=== PATIENT | female | born 1945 | race Caucasian/White ===

== ENCOUNTER → 2016-09-09 | Outpatient (CLI) | payer OTHER ==
[~2016-09-09] MED LIST: ALPR-411 PO; AMT/25 PO; ATOR-22 PO; CALCIUM 1200 PO; CMD/1 PO; CMD6 PO; LISI-461 PO; MRLP17 PO; MULT-506 PO; NXM/40 PO; TOBRSUS TOP; VENL75CA73 PO; ZOLP10TA3 PO
[2016-09-09 14:56] LABS: BASO % 0.4 %; BASO ABS # 0.02 K/uL (0-0.2); COMPLETE YES; EOS % 6.8 %; HEMATOCRIT 37.5 % (37-47); IG% 0.2 %; LYMPH % 23.1 %; LYMPH ABS # 1.22 K/uL (1.2-3.4); MEAN CELL VOLUME 88.4 fL (80-100); MEAN CORPUSCULAR HEMOGLOBIN 28.8 pg (25-34); MEAN CORPUSCULAR HGB CONC 32.5 g/dl (32-36); MEAN PLATELET VOLUME 10.2 fL (7.4-10.4); MONO % 9.1 %; NEUT % 60.4 %; PLATELET COUNT 290 K/uL (130-400); RED BLOOD COUNT 4.24 M/uL (4.2-5.4); WHITE BLOOD COUNT 5.29 K/uL (4.8-10.8)
[2016-09-09 15:09] LABS: ALT/SGPT 25 U/L (12-78); AST/SGOT 22 U/L (15-37); BLOOD UREA NITROGEN 17 mg/dl (7-18); BUN/CREATININE RATIO 26.2 (10-20); CALCIUM 8.6 mg/dl (8.5-10.1); CARBON DIOXIDE 30 mmol/L (21-32); CHLORIDE 106 mmol/L (98-107); CREATININE 0.65 mg/dl (0.60-1.20); GLUCOSE 106 mg/dl (70-99); POTASSIUM 4.2 mmol/L (3.5-5.1); SODIUM 144 mmol/L (136-145)
[2016-09-09 15:16] LABS: ALKALINE PHOSPHATASE 93 U/L (45-117); CHOLESTEROL 158 mg/dl (0-200); CHOLESTEROL/HDL RATIO 2.6; HDL CHOLESTEROL 61 mg/dl; LDL CHOLESTEROL CALCULATED 69 mg/dl; TRIGLYCERIDES 140 mg/dl (0-150); VERY LOW DENSITY LIPOPROT CALC 28 mg/dl
== END | disposition home or self-care (01) ==
LOC: C.LABSPEC 09:43
PROVIDERS: ATTEND Family Medicine
DX: E03.9 Hypothyroidism, unspecified (principal); I48.2 Chronic atrial fibrillation; I10 Essential (primary) hypertension

== ENCOUNTER → 2017-03-12 | Outpatient (CLI) | payer OTHER ==
[2017-03-12 14:09] LABS: BASO % 0.4 %; BASO ABS # 0.03 K/uL (0-0.2); COMPLETE YES; EOS % 3.5 %; HEMATOCRIT 42.4 % (37-47); IG% 0.1 %; LYMPH % 18.9 %; LYMPH ABS # 1.31 K/uL (1.2-3.4); MEAN CELL VOLUME 91.6 fL (80-100); MEAN CORPUSCULAR HEMOGLOBIN 29.8 pg (25-34); MEAN CORPUSCULAR HGB CONC 32.5 g/dl (32-36); MEAN PLATELET VOLUME 10.3 fL (7.4-10.4); MONO % 8.4 %; NEUT % 68.7 %; PLATELET COUNT 289 K/uL (130-400); RED BLOOD COUNT 4.63 M/uL (4.2-5.4); WHITE BLOOD COUNT 6.94 K/uL (4.8-10.8)
[2017-03-12 14:36] LABS: ALT/SGPT 18 U/L (12-78); BLOOD UREA NITROGEN 18 mg/dl (7-18); BUN/CREATININE RATIO 30.5 (10-20); CALCIUM 9.5 mg/dl (8.5-10.1); CARBON DIOXIDE 31 mmol/L (21-32); CHLORIDE 106 mmol/L (98-107); CHOLESTEROL 176 mg/dl (0-200); CREATININE 0.59 mg/dl (0.60-1.20); GLUCOSE 104 mg/dl (70-99); POTASSIUM 4.4 mmol/L (3.5-5.1); SODIUM 141 mmol/L (136-145)
[2017-03-12 14:45] LABS: ALB/GLOB RATIO 1.1 (0.9-2); ALKALINE PHOSPHATASE 85 U/L (45-117); AST/SGOT 23 U/L (15-37); CHOLESTEROL/HDL RATIO 2.5; HDL CHOLESTEROL 70 mg/dl; LDL CHOLESTEROL CALCULATED 80 mg/dl; TRIGLYCERIDES 129 mg/dl (0-150); VERY LOW DENSITY LIPOPROT CALC 26 mg/dl
== END | disposition home or self-care (01) ==
LOC: C.LABSPEC 13:32
PROVIDERS: ATTEND Family Medicine
DX: I10 Essential (primary) hypertension (principal); E03.9 Hypothyroidism, unspecified

== ENCOUNTER → 2017-09-08 | Outpatient (CLI) | payer OTHER ==
[~2017-09-08] MED LIST changes: -CMD/1 PO; +WARF-298 PO
[2017-09-08 12:50] LABS: BASO % 0.6 %; BASO ABS # 0.04 K/uL (0-0.2); EOS % 7.2 %; EOS ABS # 0.52 K/uL (0-0.5); HEMATOCRIT 41.2 % (37-47); HEMOGLOBIN 13.6 g/dL (12.0-16.0); IG# 0.02 K/uL (0.00-0.02); LYMPH % 19.2 %; LYMPH ABS # 1.39 K/uL (1.2-3.4); MEAN CORPUSCULAR HEMOGLOBIN 30.7 pg (25-34); MEAN PLATELET VOLUME 10.2 fL (7.4-10.4); MONO % 8.4 %; MONO ABS # 0.61 K/uL (0.11-0.59); NEUT % 64.3 %; NEUT ABS # 4.66 K/uL (1.4-6.5); PLATELET COUNT 270 K/uL (130-400); RED CELL DISTRIBUTION WIDTH CV 14.8 % (11.5-14.5); RED CELL DISTRIBUTION WIDTH SD 50.7 fL (36.4-46.3); WHITE BLOOD COUNT 7.24 K/uL (4.8-10.8)
[2017-09-08 14:50] LABS: ALBUMIN 3.4 gm/dl (3.4-5.0); ALKALINE PHOSPHATASE 78 U/L (45-117); ALT/SGPT 18 U/L (12-78); AST/SGOT 17 U/L (15-37); BLOOD UREA NITROGEN 21 mg/dl (7-18); CARBON DIOXIDE 32 mmol/L (21-32); CREATININE 0.73 mg/dl (0.60-1.20); GLUCOSE 104 mg/dl (70-99); POTASSIUM 4.6 mmol/L (3.5-5.1); SODIUM 139 mmol/L (136-145)
[2017-09-08 14:55] LABS: CHOLESTEROL 158 mg/dl (0-200); LDL CHOLESTEROL CALCULATED 65 mg/dl
== END | disposition home or self-care (01) ==
LOC: C.LABSPEC 12:19
PROVIDERS: ATTEND Family Medicine
DX: I10 Essential (primary) hypertension (principal); I48.2 Chronic atrial fibrillation; E03.9 Hypothyroidism, unspecified

== ENCOUNTER → 2017-10-06 | Outpatient (CLI) | payer OTHER ==
[2017-10-06 19:03] LABS: INFLUENZA B ANTIGEN Neg for Influ B (NEG)
== END | disposition home or self-care (01) ==
LOC: C.LABSPEC 17:47
PROVIDERS: ATTEND Family Medicine
DX: R05 Cough (principal)

== ENCOUNTER 2020-03-20 04:56 | Observation (INO) ==
--- NOTE | 2020-02-25 13:29 | PAT Medication Instructions ---
Medication Instructions Date of Service February 25, 2020 Home Medications atorvastatin 20 mg PO QAM bupropion HCl [Wellbutrin SR] 100 mg PO QAM calcium carbonate [Calcium 600] 600 mg PO QAM esomeprazole magnesium [Nexium] 40 mg PO QAM latanoprost [Xalatan] 1 drp OPHTHALMIC (EYE) PM lisinopril 10 mg PO QAM metoprolol succinate [Toprol XL] 50 mg PO QAM multivitamin 1 tab PO QAM polyethylene glycol 3350 [Miralax] 17 g PO HS venlafaxine 75 mg PO QAM warfarin 4.5 mg PO 5XWK warfarin 6 mg PO 2XWK zolpidem 10 mg PO HS ASK your prescriber and surgeon warfarin 4.5 mg PO 5XWK warfarin 6 mg PO 2XWK DO NOT take the morning of surgery calcium carbonate [Calcium 600] 600 mg PO QAM lisinopril 10 mg PO QAM multivitamin 1 tab PO QAM Take morning of surgery With a small sip of water, OTHERWISE NOTHING TO EAT OR DRINK AFTER MIDNIGHT: atorvastatin 20 mg PO QAM bupropion HCl [Wellbutrin SR] 100 mg PO QAM esomeprazole magnesium [Nexium] 40 mg PO QAM metoprolol succinate [Toprol XL] 50 mg PO QAM venlafaxine 75 mg PO QAM Take evening before surgery latanoprost [Xalatan] 1 drp OPHTHALMIC (EYE) PM polyethylene glycol 3350 [Miralax] 17 g PO HS zolpidem 10 mg PO HS Other Notes If you have any questions please call us at [phone] or [phone] or [phone] or [phone]
--- NOTE | 2020-02-28 11:33 | Anesthesiology Consultation ---
Date of Service February 28, 2020 Assessment & Plan (1) Encounter for pre-operative examination: COVID Status: As of 02/27 assessment, patient denies travel to endemic area, known exposure/sick contacts, or symptoms of COVID19. Patient instructed that they and their household members must follow strict social distancing guidelines, wear a mask in public and avoid travel for 14 days prior to surgery. Preoperative COVID19 testing to be completed prior to surgery per surgeon's arra ngements. Patient made aware to self-isolate as much as possible between COVID testing and surgery. Cardiology Clearance 02/29/20 = "Cleared from cardiac standpoint." PCP Clearance 03/07/20 = "Seen in the office March 06 2020, cleared for total hip replacement given cleared by cardiology." Chart Review Chart Review: Acceptable Risk for Surgery and Patient seen in Pre Admission Testing Teaching & Discussion Instructed NPO after midnight before surgery, except medications with 15 cc of water. Medication instructions provided according to the PAT guidelines. History Surgery Operation Date: 03/20/20 10:40 Proposed Procedures p Left Anterior Total Hip Arthroplasty - Danny Villa DO Height/Weight Height: 5 ft 4 in Weight: 70.2 kg Allergies Allergy/AdvReac Type Severity Reaction Status Date / Time levofloxacin Allergy Unknown ARMS GET Verified 02/24/20 10:47 HEAVY FEELING AND HURT Sulfa (Sulfonamide Allergy Unknown ITCHINESS,H Verified 02/24/20 10:47 Antibiotics) TRUPTI MACE Medications Home Medications Medication Instructions Recorded Confirmed Last Taken atorvastatin 20 mg PO QAM 09/06/19 02/24/20 Unknown bupropion HCl [Wellbutrin SR] 100 mg PO QAM 09/06/19 02/24/20 Unknown calcium carbonate [Calcium 600] 600 mg PO QAM 09/06/19 02/24/20 Unknown esomeprazole magnesium [Nexium] 40 mg PO QAM 09/06/19 02/24/20 Unknown latanoprost [Xalatan] 1 drp OPHTHALMIC (EYE) PM 09/06/19 02/24/20 Unknown lisinopril 10 mg PO QAM 09/06/19 02/24/20 Unknown metoprolol succinate [Toprol XL] 50 mg PO QAM 09/06/19 02/24/20 Unknown multivitamin 1 tab PO QAM 09/06/19 02/24/20 Unknown polyethylene glycol 3350 [Miralax] 17 g PO HS 09/06/19 02/24/20 Unknown venlafaxine 75 mg PO QAM 09/06/19 02/24/20 Unknown warfarin 4.5 mg PO 5XWK 09/06/19 02/24/20 Unknown warfarin 6 mg PO 2XWK 09/06/19 02/24/20 Unknown zolpidem 10 mg PO HS 09/06/19 02/24/20 Unknown Past Medical History Medical History Anxiety Atrial fibrillation Chronic back pain COPD (chronic obstructive pulmonary disease) Mild emphysema, no inhalers. Depression Environmental allergies GERD (gastroesophageal reflux disease) Glaucoma H/O supraventricular tachycardia s/p RFA History of diverticulitis s/p bowel resection-1998 Hyperlipidemia Hypertension On anticoagulant therapy Coumadin daily for afib Osteoarthritis Pollen allergies Exercise / Class Metabolic Activity II 4-5 Yardwork/Stairs/Walk up hill (Does stairs at home daily, no chest pain, mild MANRIQUE) Past Family History Family History Uncle Family history of diabetes mellitus Father Family hx of colon cancer Past Surgical History Surgical History History of arthroscopic knee surgery History of bowel resection History of cardiac cath 11/2019 DR MENDEZ OFFICE-NO STENTS History of cardiac radiofrequency ablation History of carpal tunnel surgery of right wrist History of section X 2 History of esophagogastroduodenoscopy (EGD) History of right hip replacement Hx of bilateral cataract extraction Hx of colonoscopy Hx of dilation and curettage Hx of exploratory laparotomy Past Anesthesia History No Hx of Anesthesia Complications and No Family Hx of Anesthesia Complications History of PONV No Hx of PONV and No Hx of Motion Sickness Social History Smoking Status: Former smoker tobacco type: cigarettes Do You Dip or Chew Tobacco: No Smoking End Date: 09/12/19 Hx Alcohol Use: Yes Alcohol type: beer, wine and hard liquor alcohol intake frequency: a few times a week Hx Substance Use: No Review of Systems Pt denies any recent chest pain, shortness of breath, palpitations, cough, fever, URI, or uncontrolled acid reflux. Physical Exam Vital Signs BP: 157/77 P: 57bpm SPO2: 99% RA T: 98.3 F R: 16 ENMT Mouth: + chipped teeth (small chips in front uppers); no dental restorations and no loose teeth Thyromental Distance: > or= 3.5 Finger Breadths Mallampati Class: I Neck normal visual inspection; neck extension not limited Respiratory normal respiratory effort Auscultation: lungs clear to auscultation bilaterally Cardiovascular Rate/Rhythm: regular rate and regular rhythm Heart Sounds: no murmur Extremities: no edema Testing Laboratory Results 02/28/20 11:25 02/28/20 11:25 PT 18.2 Seconds (9.0-12.0) H 02/28/20 11:25 INR 1.8 (0.9-1.1) H 02/28/20 11:25 APTT 34.1 Seconds (21.0-31.0) H 02/28/20 11:25 Hemoglobin A1c 6.1 % (4.5-5.6) H 02/28/20 11:25 Urine Color Yellow 02/28/20 11:25 Urine Appearance Clear (Clear) 02/28/20 11:25 Urine pH 5.0 (4.5-7.5) 02/28/20 11:25 Ur Specific [place] 1.018 (1.000-1.030) 02/28/20 11:25 Urine Protein Negative (Negative) 02/28/20 11:25 Urine Glucose (UA) Negative (Negative) 02/28/20 11:25 Urine Ketones Negative (Negative) 02/28/20 11:25 Urine Nitrite Negative (Negative) 02/28/20 11:25 Ur Leukocyte Esterase Trace (Negative) H 02/28/20 11:25 Urine WBC (Auto) 1-5 /hpf (0-5) 02/28/20 11:25 Urine RBC (Auto) 0-4 /hpf (0-4) 02/28/20 11:25 U Hyaline Cast (Auto) 1-5 /lpf (0-5) 02/28/20 11:25 U Epithel Cells (Auto) 5-10 /lpf (0-5) H 02/28/20 11:25 Urine Bacteria (Auto) Negative (Negative) 02/28/20 11:25 Blood Type A Negative 02/28/20 11:25 Antibody Screen NEGATIVE 02/28/20 11:25 Electrocardiogram Date: 02/29/20 Findings: + NSR @ (61bpm) RSR in V1, nondiagnostic. Chest X-Ray Date: 09/28/19 Findings: + NAD Cardiac Catheterization Date: 11/16/19 Angiographically normal coronary arteries, normal left ventriculogram. Other Testing Testing noted as below in cardiology office note, requested full reports but not received. Nuclear Stress Test 10/2019 EF 74% "WNL" (although LHC was done apparently for abnormal stress test) Echocardiogram 09/2019 LVEF 40-45% Aor 3.0cm DD grade I Moderate AR MAC
[2020-02-28 12:27] LABS: Basophils # (auto) 0.03 K/uL (0-0.2); Basophils % (auto) 0.5 %; Eosinophils # (auto) 0.36 K/uL (0-0.5); Eosinophils % (auto) 6.1 %; Hematocrit (blood only) 39.7 % (37-47); Hemoglobin 13.1 g/dL (12.0-16.0); Immature Granulocytes # (auto) 0.01 K/uL (0.00-0.02); Immature Granulocytes % (auto) 0.2 %; Lymphocytes # (auto) 1.24 K/uL (1.2-3.4); Mean Corpuscular Hemoglobin 30.5 pg (25-34); Mean Corpuscular Volume 92.3 fL (80-100); Mean Platelet Volume 10.2 fL (7.4-10.4); Monocytes # (auto) 0.35 K/uL (0.11-0.59); Monocytes % (auto) 5.9 %; Neutrophils # (auto) 3.91 K/uL (1.4-6.5); Neutrophils % (auto) 66.3 %; Platelet Count 247 K/uL (130-400); RDW Coefficient of Variation 14.3 % (11.5-14.5)
[2020-02-28 12:32] LABS: Appearance Urine Clear (Clear); Bacteria Urine Automated Negative (Negative); Bilirubin Urine Negative (Negative); Blood Urine Trace (Negative); Color Urine Yellow; Glucose Urine UA Negative (Negative); Ketones Urine Negative (Negative); Leukocyte Esterase Urine Trace (Negative); Nitrite Urine Negative (Negative); Protein Urine Negative (Negative); RBC Urine Automated 0-4 /hpf (0-4); Specific Gravity Urine 1.018 (1.000-1.030); Urobilinogen Urine Negative (Negative)
[2020-02-28 12:37] LABS: Estimated Average Glucose 128 mg/dl; Hemoglobin A1C 6.1 % (4.5-5.6)
[2020-02-28 12:44] LABS: INR 1.8 (0.9-1.1); Partial Thromboplastin Ratio 1.2; Partial Thromboplastin Time 34.1 Seconds (21.0-31.0); Prothrombin Time 18.2 Seconds (9.0-12.0)
[2020-02-28 12:49] LABS: Albumin Level 3.3 gm/dl (3.4-5.0); BUN Creatinine Ratio 30.2 (10-20); Calcium 9.6 mg/dl (8.5-10.1); Creatinine Clr Calc Pharmacy 67.9 ml/min; Est GFR (Non-African American) 83.7; Potassium 4.6 mmol/L (3.5-5.1)
--- NOTE | 2020-03-18 11:40 | History & Physical Report ---
Date of Service March 20, 2020 Assessment & Plan (1) Degenerative joint disease of left hip: I have indicated the patient for left anterior total hip replacement. The risks, benefits and complications of surgery were explained to the patient which include but not limited to infection, acute blood loss, DVT/PE, injury to nerves, vessels, bone, soft tissue, arthrofibrosis, chronic pain, failure of the prosthesis, hip dislocation, leg length discrepancy, need for additional surgery, cardiac and pulmonary events and . The patient wished to proceed with surgery and informed consent was obtained at this time. We will plan for restarting patient's home medication Warfarin, bridge with lovenox post- operatively for DVT prophylaxis. Upon discharge the patient will be discharged home with home health services. Appropriate clearances by PCP and cardiology were obtained. History of Present Illness Primary Care Provider: Simba Wallace The patient is a 74 year old female who presents with complaints of severe left hip pain and DJD. The patient has failed outpatient conservative treatments to this point which included activity modification, home exercise, walking program. Patient unable to take NSAIDs secondary to being on Warfarin. Declined corticosteroid injection. The patient's pain and limited function have progressed to the point where they severely hinder their activities of daily living and they no longer tolerate exercise programs. They are requesting to pro ceed with total hip replacement surgery. Allergies Allergy/AdvReac Type Severity Reaction Status Date / Time levofloxacin Allergy Unknown ARMS GET Verified 03/20/20 05:26 HEAVY FEELING AND HURT Sulfa (Sulfonamide Allergy Unknown ITCHINESS,H Verified 03/20/20 05:26 Antibiotics) TRUPTI MACE Home Medications Home Medications Medication Instructions Recorded Confirmed Type atorvastatin 20 mg PO QAM 09/06/19 02/24/20 History bupropion HCl [Wellbutrin SR] 100 mg PO QAM 09/06/19 03/20/20 History calcium carbonate [Calcium 600] 600 mg PO QAM 09/06/19 03/20/20 History esomeprazole magnesium [Nexium] 40 mg PO QAM 09/06/19 02/24/20 History latanoprost [Xalatan] 1 drp OPHTHALMIC (EYE) PM 09/06/19 03/20/20 History lisinopril 10 mg PO QAM 09/06/19 03/20/20 History metoprolol succinate [Toprol XL] 50 mg PO QAM 09/06/19 02/24/20 History multivitamin 1 tab PO QAM 09/06/19 03/20/20 History polyethylene glycol 3350 [Miralax] 17 g PO HS 09/06/19 03/20/20 History venlafaxine 75 mg PO QAM 09/06/19 02/24/20 History warfarin 4.5 mg PO 5XWK 09/06/19 03/20/20 History warfarin 6 mg PO 2XWK 09/06/19 03/20/20 History zolpidem 10 mg PO HS 09/06/19 03/20/20 History Past Med/Surg History Medical History Anxiety Atrial fibrillation Chronic back pain COPD (chronic obstructive pulmonary disease) Mild emphysema, no inhalers. Depression Environmental allergies GERD (gastroesophageal reflux disease) Glaucoma H/O supraventricular tachycardia s/p RFA History of diverticulitis s/p bowel resection-1998 Hyperlipidemia Hypertension On anticoagulant therapy Coumadin daily for afib Osteoarthritis Pollen allergies Surgical History History of arthroscopic knee surgery History of bowel resection History of cardiac cath 11/2019 DR MENDEZ OFFICE-NO STENTS History of cardiac radiofrequency ablation History of carpal tunnel surgery of right wrist History of section X 2 History of esophagogastroduodenoscopy (EGD) History of right hip replacement Hx of bilateral cataract extraction Hx of colonoscopy Hx of dilation and curettage Hx of exploratory laparotomy Family History Uncle Family history of diabetes mellitus Father Family hx of colon cancer Social History Smoking Status: Former smoker Smoking End Date: 09/12/19; Second Hand Exposure: Yes (PARENTS SMOKED); Do You Dip or Chew Tobacco: No; Hx Alcohol Use: Yes Alcohol type: beer, wine and hard liquor Hx Substance Use: No Preferred Language: Occitan Communication Ability: Effective Jacker Feeder Required: No Beliefs That Will Affect Care: None Current Living Situation: Spouse Other Information That Helps Us Care for You: No Feels Safe at Home: Yes Safety Concerns: Feels Safe At This Time Review of Systems Review of Systems: All systems reviewed & are unremarkable except as noted in HPI & below Constitutional: as per Subjective / HPI Physical Exam Physical Exam: LLE NVSI +EHL/FHL/TA/GS SILT grossly, +2 DP pulse, compartments soft NT, limited painful ROM of the hip, antalgic gait. Constitutional: WD/WN, vitals as above Eyes: PERRL, conjunctivae normal, anicteric sclerae ENMT: external ear and nose normal, oropharynx normal Neck: trachea midline, no thyromegaly Respiratory: normal respiratory effort, lungs clear to auscultation Cardiovascular: RRR, no murmur, no edema Gastrointestinal (Abdomen): normal bowel sounds, soft, nontender, no hepatosplenomegaly Musculoskeletal: no cyanosis or clubbing, extremities motor strength 5/5 Skin: no rashes, warm and dry Neurologic: patellar DTR's 2+ bilat, sensation intact Psychiatric: A+Ox3, euthymic affect Lymphatic: no cervical or axillary lymphadenopathy Results & Data Results & Data ([facility]) Diagnostic Findings Multiple views of the hip demonstrates severe DJD with complete loss of the inferomedial joint space. +osteophytes, +sclerosis, +subchondral cysts. Pre Admission Testing Addendum Laboratory Results 02/28/20 11:25 02/28/20 11:25 PT 18.2 Seconds (9.0-12.0) H 02/28/20 11:25 INR 1.8 (0.9-1.1) H 02/28/20 11:25 APTT 34.1 Seconds (21.0-31.0) H 02/28/20 11:25 Hemoglobin A1c 6.1 % (4.5-5.6) H 02/28/20 11:25 Urine Color Yellow 02/28/20 11:25 Urine Appearance Clear (Clear) 02/28/20 11:25 Urine pH 5.0 (4.5-7.5) 02/28/20 11:25 Ur Specific [place] 1.018 (1.000-1.030) 02/28/20 11:25 Urine Protein Negative (Negative) 02/28/20 11:25 Urine Glucose (UA) Negative (Negative) 02/28/20 11:25 Urine Ketones Negative (Negative) 02/28/20 11:25 Urine Nitrite Negative (Negative) 08/24/20 11:25 Ur Leukocyte Esterase Trace (Negative) H 02/28/20 11:25 Urine WBC (Auto) 1-5 /hpf (0-5) 02/28/20 11:25 Urine RBC (Auto) 0-4 /hpf (0-4) 02/28/20 11:25 U Hyaline Cast (Auto) 1-5 /lpf (0-5) 02/28/20 11:25 U Epithel Cells (Auto) 5-10 /lpf (0-5) H 02/28/20 11:25 Urine Bacteria (Auto) Negative (Negative) 02/28/20 11:25 Blood Type A Negative 02/28/20 11:25 Antibody Screen NEGATIVE 02/28/20 11:25
[2020-03-20 05:48] LABS: Partial Thromboplastin Ratio 0.9; Partial Thromboplastin Time 25.9 Seconds (21.0-31.0); Prothrombin Time 10.9 Seconds (9.0-12.0)
[2020-03-20] MEDS ORDERED: LR 500ML BOLUS, THEN 15ML/HR IV SCH (06:00)
[2020-03-20] MEDS ORDERED: METOCLOPRAMIDE HCL 10 MG TABLET PO SCH (06:00)
[2020-03-20] MEDS ORDERED: ACETAMINOPHEN 500 MG TAB PO SCH (06:00)
[2020-03-20] MEDS ORDERED: GABAPENTIN 300 MG CAP PO SCH (06:00)
[2020-03-20] MEDS ORDERED: FAMOTIDINE 20 MG TAB PO SCH (06:00)
[2020-03-20] MEDS ORDERED: CEFAZOLIN 2000MG 2,000 MG/15 ML SYR IV SCH (06:00)
[2020-03-20] MEDS ORDERED: dexAMETHasone 4 MG TAB PO SCH (06:00)
[2020-03-20] MEDS ORDERED: fentaNYL citrate 100 MCG/2 ML VIAL ONE (06:23)
[2020-03-20] MEDS ORDERED: MIDAZOLAM HCL 1 MG/ML 2ML VIAL ONE (06:23)
[2020-03-20] MEDS ORDERED: BUPIVACAINE 0.5 % 5 MG/1 ML PF 10ML VIAL ONE (06:27)
[2020-03-20] MEDS ORDERED: BACITRACIN INJ 50,000 UNIT VIAL ONE (06:33)
[2020-03-20] MEDS ORDERED: ePHEDrine sulfate 50 MG/ML AMP IV PRN (06:37)
[2020-03-20] MEDS ORDERED: fentaNYL citrate 100 MCG/2 ML VIAL IV PRN (06:37)
[2020-03-20] MEDS ORDERED: ATROPINE SULFATE 0.1 MG/ML 10ML SYR IV PRN (06:37)
[2020-03-20] MEDS ORDERED: ONDANSETRON INJ 2 MG/ML 2 ML VIAL IV PRN ×2 (06:37→10:25)
--- NOTE | 2020-03-20 06:41 | History & Physical Bridge Note ---
Date of Service March 20, 2020 History & Physical Bridge Note I have examined the patient, reviewed the History & Physical and in the interval since the performance of the History & Physical I have noted the following changes of clinical significance: no changes noted
[2020-03-20] MEDS ORDERED: PROPOFOL IV EMULSION 10 MG/ML 20 ML VIAL IV ONE (07:40)
[2020-03-20] MEDS: ROPIVACAINE 0.5% HCL/PF 150 MG, BUPIVACAINE 0.5% MPF 30 ML, EPINEPHrine 30MG/30ML (OR U... INSTIL SCH (08:00)
--- NOTE | 2020-03-20 08:48 | Post Operative Brief Note ---
Immediate Post Op Note v1 Date of Surgery March 20, 2020 Pre & Post Diagnosis Operation Date: 03/20/20 07:00 Pre-Op Diagnosis: Unilateral Osteoarthritis, Left Hip Post-Op Diagnosis: Unilateral Osteoarthritis, Left Hip I identified the patient and participated in the time-out.: Yes Procedure Operation Date: 03/20/20 07:00 Actual Procedures p Left Anterior Total Hip Arthroplasty(Left) - Danny Villa DO Surgeon Danny Villa DO Spray Drier Maxx Tompkins Estimated Blood Loss 175 Findings Consistent with Post-Op Diagnosis Fluids 800 cc LR Specimens femoral head Anesthesia Type Spinal MAC Complications none Disposition Disposition: Recovery Room Overlapping Procedure I was present for: the critical portions of procedure. I was immediately available: during the entire case. Back up surgeon: was not required during procedure.
--- NOTE | 2020-03-20 08:50 | Operative Report ---
Post Operative Report Pre & Post Diagnosis Operation Date: 03/20/20 07:00 Pre-Op Diagnosis: Unilateral Osteoarthritis, Left Hip Post-Op Diagnosis: Unilateral Osteoarthritis, Left Hip I identified the patient and participated in the time-out.: Yes Procedure Operation Date: 03/20/20 07:00 Actual Procedures p Left Anterior Total Hip Arthroplasty(Left) - Danny Villa DO Surgeon Danny Villa DO Appliance Technician Maxx Tompkins Estimated Blood Loss 175 Findings Consistent with Post-Op Diagnosis Fluids 800 cc LR Specimens femoral head Anesthesia Type Spinal MAC Complications none Disposition Disposition: Recovery Room Indications The patient is a 74-year-old female who presents with severe progressive left hip DJD who has failed outpatient conservative treatments. I indicated the patient for a total hip replacement and the risks and benefits were explained in detail which included but not limited to infection, bleeding, blood clot, damage to surrounding bone, nerves, vessels, soft tissue, hip dislocation, failure of the prosthesis, leg length discrepancy, need for additional surgery and . The patient agreed to proceed with replacement of the hip and informed consent was obtained. Appropriate clearances were obtained. Description of Procedure COMPONENTS USED: [employer] hip system: Acetabulum size 50, femur size 6 high offset, femoral head 32-3, liner 5032, acetabular screw 25 mm x 1. DESCRIPTION OF PROCEDURE: Following satisfactory spinal anesthesia, the patient was placed supine on the OR table. The right leg was placed in the well leg nevarez and the left leg in the traction device. The left leg was prepared with ChloraPrep and draped sterilely. A surgical timeout was performed, patient identified and site efe verified. Appropriate antibiotics were given. A standard anterior approach in the interval between the sartorius and tensor muscles was performed. Dissection was carried down through subcutaneous tissues. Electrocautery was utilized for hemostasis. Circumflex femoral vessels were identified, tied and ligated. The anterior capsular fat pad was removed and the capsulotomy was performed revealing the arthritic femoral neck and head. A femoral neck cut was made with reciprocating saw and the bone fragments removed. The acetabular self-retraining retractor was placed. Acetabular reaming was completed under fluoroscopic guidance, a 50 shell was impacted into an anatomic position and secured with a dome screw. Local anesthetic was placed and following irrigation, the polyethylene liner was placed. The femur was placed into position of external rotation, extension and adduction. Femoral canal was prepared up to the size 6 high offset. Trial reduction with a 32-3 neck length head showed good soft tissue tension, leg lengths restored, and good fit and fill of the proximal canal using fluoroscopic landmarks. The hip was dislocated. The trial component was removed. The final implant was placed. The hip was irrigated with sterile saline solution and reduced. A Betadine soak was performed. After 3 minutes, the hip was once more irrigated with copious sterile saline solution with bacitracin. Frida-incisional soft tissue was injected utilizing [place] [employer] which includes a combination of Ropivicaine 0.5% 150mg, Bupivicaine 0.5%/Epinephrine 1:200,000 30ml, Toradol 30mg, Dexamethasone 4mg, Ketamine 10mg, Clonidine 100mcg and NSS 30ml solution. The capsule was then closed with 1-0 Vicryl interrupted figure of eight sutures. The fascia was closed with a running suture of #1 Vicryl, the subcutaneous tissues with 2-0 Vicryl and the skin was closed with bernardino. A sterile dry dressing was applied which included Esme incisional VAC. The patient tolerated the procedure well and was transported to PACU in stable condition. Due to the complex nature of the procedure, the entire surgery was performed with the operational assistance of Maxx Tompkins PA-C. The esl instructional assistant, under direct supervision, was involved in the actual performance of all aspects of the surgical procedure including patient positioning, hemostasis, tissue retraction, instrument management and wound closure. I attest to the content of the Intraoperative Record and any orders documented therein. Any exceptions are noted below.
--- NOTE | 2020-03-20 08:57 | Fluoroscopy Report ---
FL hip LT 1V HISTORY: 74 years-old Female LT ANTERIOR TOTAL HIP left hip total joint arthroplasty COMPARISON: CT of the right hip 01/27/2012 TECHNIQUE: 2 spot fluoroscopic images of the left hip were obtained utilizing 49.3 seconds fluoroscop y time FINDINGS: Left hip total joint arthroplasty demonstrates satisfactory alignment. No acute fracture or expected retained foreign body. Expected postsurgical soft tissue swelling is noted throughout the left hip. R ight hip total arthroplasty is partially imaged. IMPRESSION: Fluoroscopic assistance as above. Please see operative report for further details. ACT 112: Negative or not required by law. The above report was generated using voice recognition software. It may contain grammatical, syntax o r spelling errors. Electronically signed by: Onofre Cuellar M.D. 03/20/2020 8:55 AM
--- NOTE | 2020-03-20 09:33 | XRay Report ---
XR hip 1V LT w pelvis HISTORY: 74 years-old Female IN PACU - A/P PELVIS and LATERAL HIP left hip total joint arthroplasty COMPARISON: Fluoroscopic images of the left hip 03/20/2020 TECHNIQUE: AP view of the pelvis with crosstable lateral view of the left hip FINDINGS: Left hip total joint arthroplasty demonstrates satisfactory alignment. Expected postsurgical soft tis sylvester swelling and deep tissue air with surgical drainage catheter. Overlying skin bernardino are noted wi thout unexpected radiopaque foreign body. Right hip total arthroplasty is also noted. IMPRESSION: Left hip total joint arthroplasty with expected postoperative changes. ACT 112: Negative or not required by law. The above report was generated using voice recognition software. It may contain grammatical, syntax o r spelling errors. Electronically signed by: Onofre Cuellar M.D. 03/20/2020 9:31 AM
--- NOTE | 2020-03-20 10:15 | Anesthesiology Progress Note ---
Date of Service March 20, 2020 Anesthesia Post Procedure Vital Signs Vital Signs: Temp Pulse Pulse Resp BP Pulse Ox 03/20/20 10:05 66 18 120/53 L 98 03/20/20 09:55 65 16 131/56 L 98 03/20/20 09:45 66 19 129/55 L 98 03/20/20 09:35 64 15 135/58 L 97 03/20/20 09:25 65 19 129/55 L 96 03/20/20 09:15 66 16 133/60 96 03/20/20 09:09 97.7 F 69 16 135/63 100 03/20/20 05:40 98.4 F 69 18 170/70 H 97 Pain Intensity Left Hip: Pain Intensity: 0 Transfer of Care Handoff Completed per policy Notes Mental Status: alert / awake / arousable and participated in evaluation Patient Amnestic to Procedure: Yes Nausea / Vomiting: adequately controlled Pain: adequately controlled Airway Patency, RR, SpO2: stable & adequate BP & HR: stable & adequate Hydration State: stable & adequate Anesthetic Complications: no major complications apparent and Pt Satisfied with anesthetic care
[2020-03-20] MEDS ORDERED: bisacodyL 10 MG SUPP PR PRN (10:25)
[2020-03-20] MEDS ORDERED: HYDROmorphone INJ 0.5 MG/0.5 ML SYR IV PRN (10:25)
[2020-03-20] MEDS ORDERED: MAGNESIUM HYDROXIDE SUSP 30 ML UDC PO PRN (10:25)
[2020-03-20] MEDS ORDERED: NALOXONE HCL 0.4 MG/1 ML VIAL/CARP IV PRN (10:25)
[2020-03-20] MEDS ORDERED: METOCLOPRAMIDE HCL INJ 5 MG/ML 2 ML VIAL IV PRN (10:25)
[2020-03-20] MEDS ORDERED: ATORVASTATIN 20 MG TAB PO SCH (10:25)
[2020-03-20] MEDS: SODIUM CHLORIDE 0.9% 1000ML 1,000 ML IV SCH ×2 (10:46→19:54)
[2020-03-20] MEDS: MISSING PHYSICIAN SIGNATURE ON ORDER SCH ×3 (11:02→16:21)
[2020-03-20] MEDS: lisinopriL 10 MG TAB PO SCH (11:20)
[2020-03-20] MEDS: MULTIVITAMIN TAB PO SCH (11:20)
[2020-03-20] MEDS: DOCUSATE SODIUM 100 MG CAP PO SCH ×2 (11:20→21:46)
[2020-03-20] MEDS: OXYCODONE HCL IR 5 MG TAB (IMMEDIATE RELEASE) PO PRN ×2 (12:12→17:25)
[2020-03-20] MEDS: ACETAMINOPHEN 500 MG TAB PO SCH ×2 (12:13→21:46)
[2020-03-20] MEDS: CEFAZOLIN 2000MG 2,000 MG/15 ML SYR IV SCH ×2 (15:58→22:33)
[2020-03-20] MEDS ORDERED: WARFARIN SOD 2.5 MG TAB PO SCH (16:00)
[2020-03-20] MEDS ORDERED: WARFARIN SOD 2 MG TAB PO SCH (16:00)
--- NOTE | 2020-03-20 16:05 | Orthopedic Progress Note ---
Date of Service March 20, 2020 Assessment & Plan (1) Degenerative joint disease of left hip: s/p L anterior KEZIA -ancef x 24 -DVT ppx: SCDs, TEDs, Lovenox --> warfarin -WBAT LLE -PT/OT -PO XR demonstrates a well aligned well fixed prosthesis without fracture/dislocation -am labs -DC planning Admission and Anticipated Discharge Date Admission Date: March 20, 2020 Subjective Post Operative Progress Note Patient seen sitting up in bed, comfortable, denies complaints, pain well controlled, no acute issues. Review of Systems Review of Systems: All systems reviewed & are unremarkable except as noted in HPI & below Constitutional: as per Subjective / HPI Physical Exam Physical Exam: LLE NVSI +EHL/FHL/TA/GS SILT grossly, +2 DP pulse, compartments soft NT, dressing cdi. Constitutional: WD/WN, vitals as above Results & Data ([facility]) Vital Signs (Past 12 Hours) Vital Signs Temp Pulse Pulse Pulse Resp BP Pulse Ox 03/20/20 15:35 36.6 C 58 L 18 130/76 94 03/20/20 13:22 69 18 120/54 L 96 03/20/20 12:16 70 16 145/67 H 96 03/20/20 11:22 66 16 127/65 96 03/20/20 10:51 65 16 134/70 100 03/20/20 10:25 36.5 C 66 15 127/68 99 03/20/20 10:15 36.3 C L 68 16 117/52 L 97 03/20/20 10:05 66 18 120/53 L 98 03/20/20 09:55 65 16 131/56 L 98 03/20/20 09:45 66 19 129/55 L 98 03/20/20 09:35 64 15 135/58 L 97 03/20/20 09:25 65 19 129/55 L 96 03/20/20 09:15 66 16 133/60 96 03/20/20 09:09 36.5 C 69 16 135/63 100 03/20/20 05:40 36.9 C 69 18 170/70 H 97
[2020-03-20] MEDS ORDERED: LATANOPROST 0.005% OP SOLN 2.5 ML BTL OP SCH (21:00)
[2020-03-20] MEDS ORDERED: SENNA 8.6 MG TAB PO SCH (21:00)
[2020-03-20] MEDS ORDERED: ZOLPIDEM TARTRATE 10 MG TAB PO SCH (21:00)
[2020-03-21] MEDS: OXYCODONE HCL IR 5 MG TAB (IMMEDIATE RELEASE) PO PRN ×2 (02:35→09:16)
[2020-03-21] MEDS: ROPIVACAINE 0.5% HCL/PF 150 MG, BUPIVACAINE 0.5% MPF 30 ML, EPINEPHrine 30MG/30ML (OR U... INSTIL SCH (05:18)
[2020-03-21] MEDS: ACETAMINOPHEN 500 MG TAB PO SCH ×2 (05:32→13:16)
[2020-03-21 06:07] LABS: Hematocrit (blood only) 30.3 % (37-47); Hemoglobin 9.8 g/dL (12.0-16.0); Lymphocytes # (auto) 0.89 K/uL (1.2-3.4); Lymphocytes % (auto) 13.4 %; Mean Corpuscular Hemoglobin 29.6 pg (25-34); Mean Corpuscular Hgb Conc 32.3 g/dL (32-36); Mean Corpuscular Volume 91.5 fL (80-100); Mean Platelet Volume 9.8 fL (7.4-10.4); Monocytes # (auto) 0.88 K/uL (0.11-0.59); Monocytes % (auto) 13.3 %; Neutrophils # (auto) 4.86 K/uL (1.4-6.5); Neutrophils % (auto) 73.3 %; Platelet Count 224 K/uL (130-400); RDW Coefficient of Variation 14.1 % (11.5-14.5); RDW Standard Deviation 47.2 fL (36.4-46.3); Red Blood Count 3.31 M/uL (4.2-5.4); White Blood Count 6.63 K/uL (4.8-10.8)
[2020-03-21 06:14] LABS: INR 1.1 (0.9-1.1); Prothrombin Time 11.2 Seconds (9.0-12.0)
[2020-03-21 06:36] LABS: BUN Creatinine Ratio 29.8 (10-20); Calcium 8.1 mg/dl (8.5-10.1); Creatinine Clr Calc Pharmacy 84.7 ml/min; Est GFR (African American) 106.7; Est GFR (Non-African American) 92.1; Potassium 3.8 mmol/L (3.5-5.1)
[2020-03-21] MEDS ORDERED: ENOXAPARIN INJ 40 MG/0.4 ML SYR SQ SCH (09:00)
[2020-03-21] MEDS ORDERED: PANTOprazole 40 MG TAB PO SCH (09:00)
[2020-03-21] MEDS ORDERED: ATORVASTATIN 20 MG TAB PO SCH (09:00)
[2020-03-21] MEDS ORDERED: BuPROPion SR 100 MG TABCR PO SCH (09:00)
[2020-03-21] MEDS ORDERED: METOPROLOL SUCC 50MG EXT REL TAB PO SCH (09:00)
[2020-03-21] MEDS ORDERED: VENLAFAXINE HCL XR 75 MG CAPXR PO SCH (09:00)
[2020-03-21] MEDS: lisinopriL 10 MG TAB PO SCH (09:15)
[2020-03-21] MEDS: MULTIVITAMIN TAB PO SCH (09:15)
[2020-03-21] MEDS: DOCUSATE SODIUM 100 MG CAP PO SCH (09:15)
--- NOTE | 2020-03-21 11:12 | Orthopedic Progress Note ---
Date of Service March 21, 2020 Assessment & Plan (1) Degenerative joint disease of left hip: s/p L anterior KEZIA POD#1 -ancef x 24 -DVT ppx: SCDs, TEDs, Lovenox --> warfarin -WBAT LLE -PT/OT -PO XR demonstrates a well aligned well fixed prosthesis without fracture/dislocation -am labs - as above, hgb 9.8 -DC planning - home with Admission and Anticipated Discharge Date Admission Date: March 20, 2020 Subjective Post Operative Progress Note Patient seen sitting up in bed, comfortable, denies complaints, pain well controlled, no acute issues. Denies F/C/N/V/SOB/CP. Review of Systems Review of Systems: All systems reviewed & are unremarkable except as noted in HPI & below Constitutional: as per Subjective / HPI Physical Exam Physical Exam: LLE NVSI +EHL/FHL/TA/GS SILT grossly, +2 DP pulse, compartments soft NT, dressing cdi. Constitutional: WD/WN, vitals as above Results & Data ([facility]) Vital Signs (Past 12 Hours) Vital Signs Temp Pulse Resp BP Pulse Ox 03/21/20 08:25 36.6 C 79 18 162/72 H 98 03/21/20 02:36 36.8 C 73 18 149/76 H 98 03/20/20 23:54 36.8 C 71 18 144/71 H 93 Laboratory Results 03/21/20 03/21/20 03/21/20 Range/Units 05:27 05:27 05:27 WBC 6.63 (4.8-10.8) K/uL RBC 3.31 L (4.2-5.4) M/uL Hgb 9.8 L (12.0-16.0) g/dL Hct 30.3 L (37-47) % MCV 91.5 (80-100) fL MCH 29.6 (25-34) pg MCHC 32.3 (32-36) g/dL RDW Std Deviation 47.2 H (36.4-46.3) fL RDW Coeff of Hima 14.1 (11.5-14.5) % Plt Count 224 (130-400) K/uL MPV 9.8 (7.4-10.4) fL Immature Gran % (Auto) 0.0 % Neut % (Auto) 73.3 % Lymph % (Auto) 13.4 % [place] % (Auto) 13.3 % Eos % (Auto) 0.0 % Baso % (Auto) 0.0 % Neut # (Auto) 4.86 (1.4-6.5) K/uL Lymph # (Auto) 0.89 L (1.2-3.4) K/uL [place] # (Auto) 0.88 H (0.11-0.59) K/uL Eos # (Auto) 0.00 (0-0.5) K/uL Baso # (Auto) 0.00 (0-0.2) K/uL Immature Gran # (Auto) 0.00 (0.00-0.02) K/uL PT 11.2 (9.0-12.0) Seconds INR 1.1 (0.9-1.1) Sodium 142 (136-145) mmol/L Potassium 3.8 (3.5-5.1) mmol/L Chloride 110 H (98-107) mmol/L Carbon Dioxide 29 (21-32) mmol/L Anion Gap 3.0 (3-11) BUN 17 (7-18) mg/dl Creatinine 0.58 L (0.6-1.2) mg/dl Est Cr Clr Drug Dosing 84.7 ml/min Est GFR ( Amer) 106.7 Est GFR (Non-Af Amer) 92.1 BUN/Creatinine Ratio 29.8 H (10-20) Glucose 127 H (70-99) mg/dl Calcium 8.1 L (8.5-10.1) mg/dl Hepatitis C Ab Screen 03/21/20 Range/Units 05:27 WBC (4.8-10.8) K/uL RBC (4.2-5.4) M/uL Hgb (12.0-16.0) g/dL Hct (37-47) % MCV (80-100) fL MCH (25-34) pg MCHC (32-36) g/dL RDW Std Deviation (36.4-46.3) fL RDW Coeff of Hima (11.5-14.5) % Plt Count (130-400) K/uL MPV (7.4-10.4) fL Immature Gran % (Auto) % Neut % (Auto) % Lymph % (Auto) % [place] % (Auto) % Eos % (Auto) % Baso % (Auto) % Neut # (Auto) (1.4-6.5) K/uL Lymph # (Auto) (1.2-3.4) K/uL [place] # (Auto) (0.11-0.59) K/uL Eos # (Auto) (0-0.5) K/uL Baso # (Auto) (0-0.2) K/uL Immature Gran # (Auto) (0.00-0.02) K/uL PT (9.0-12.0) Seconds INR (0.9-1.1) Sodium (136-145) mmol/L Potassium (3.5-5.1) mmol/L Chloride (98-107) mmol/L Carbon Dioxide (21-32) mmol/L Anion Gap (3-11) BUN (7-18) mg/dl Creatinine (0.6-1.2) mg/dl Est Cr Clr Drug Dosing ml/min Est GFR ( Amer) Est GFR (Non-Af Amer) BUN/Creatinine Ratio (10-20) Glucose (70-99) mg/dl Calcium (8.5-10.1) mg/dl Hepatitis C Ab Screen Pending
--- NOTE | 2020-03-22 09:37 | Discharge Summary ---
Date of Service March 21, 2020 Admission HPI Per Admitting Provider The patient is a 74 year old female who presents with complaints of severe left hip pain and DJD. The patient has failed outpatient conservative treatments to this point which included activity modification, home exercise, walking program. Patient unable to take NSAIDs secondary to being on Warfarin. Declined corticosteroid injection. The patient's pain and limited function have progressed to the point where they severely hinder their activities of daily living and they no longer tolerate exercise programs. They are requesting to proceed with total hip replacement surgery. Principal Diagnosis Left anterior total hip replacement -Left hip DJD Discharge Exam LLE NVSI +EHL/FHL/TA/GS SILT grossly, +2 DP pulse, compartments soft NT, dressing cdi. Constitutional WD/WN, vitals as above Discharge Data Allergies Allergy/AdvReac Type Severity Reaction Status Date / Time levofloxacin Allergy Unknown ARMS GET Verified 03/20/20 05:26 HEAVY FEELING AND HURT Sulfa (Sulfonamide Allergy Unknown ITCHINESS,H Verified 03/20/20 05:26 Antibiotics) TRUPTI MACE Consultations 03/21/20 08:00 Consult Case Management - Discharge Planning Routine Procedures Performed Operation Date: 03/20/20 07:00 Actual Procedures p Left Anterior Total Hip Arthroplasty(Left) - Danny Villa DO Ordered Studies 03/20/20 07:00 FL fluoroscopy <1hr Routine FL hip LT 1V Routine Hospital Course (1) Degenerative joint disease of left hip: The patient is a 74 -year-old female who presents with long standing history of severe left hip DJD and failed outpatient conservative treatments. The patient's symptoms have progressed to the point where it has been difficult to perform even normal activities of daily living. I indicated the patient for a left anterior total hip arthroplasty, the risks, benefits and complications of the procedure include but not limited to infection, bleeding, damage to bone, nerves, vessels, surrounding soft tissue, may develop blood clots, loss of function, leg length discrepancy, dislocation, failure of the components, loosening of the components, the need for additional surgery and . The patient wished to proceed with surgery at this time and informed consent was obtained. Hospital Course: On 03/20/20 the patient was taken to the operating room, adequate anesthesia administered and underwent a left anterior total hip arthroplasty. The patient tolerated the procedure well and was taken to the PACU in stable condition. Post-operatively the patient was started on a DVT ppx medication and given appropriate IV antibiotics. Consults were placed to physical therapy, occupational therapy and case management. On POD#1, the patient did well overnight and their pain was well controlled. Labs were drawn and the Hgb was 9.8. The patient progressed well with PT. Dressings were changed at this time and the incision was clean, dry and intact. The patients hospital stay was relatively uneventful and they were deemed stable by the orthopedic team and consultants to be discharged home with HH on 03/21/20. Discharge Instructions: Upon discharge the patient may weight bear as tolerates through their operative extremity. They were instructed to keep the incision clean and dry at all times. The patient may shower but should not submerge the incision, avoid bathing, pools and hot tubes. The patient was given a script for pain medication and should take as instructed. The patient was given a script for DVT ppx Lovenox 40mg daily and her home medication warfarin restarted post operatively and should take as directed. She was instructed to discontinue Lovenox when INR reaches goal 2-3. The patient was instructed to not drive or travel for long distances until cleared to do so. If the patient develops any symptoms of fevers, chills, nausea, vomiting, increased redness, swelling, pain or drainage from the surgical site, they should notify the office and/or proceed to the nearest emergency room. The patient should follow up in 10-14 days after surgery for their routine post-operative follow-up appointment and should call the office to confirm the date and time. s/p L anterior KEZIA POD#1 -ancef x 24 -DVT ppx: SCDs, TEDs, Lovenox --> warfarin -WBAT LLE -PT/OT -PO XR demonstrates a well aligned well fixed prosthesis without fracture/dislocation -am labs - as above, hgb 9.8 -DC planning - home with HH Total Time Total Time Spent Total Time Spent (In Minutes): 30 Discharge Plan Discharge Items Patient Disposition: Home - Home Health Services Reason For Visit: Unilateral Osteoarthritis, Left Hip Discharge Diagnosis: Left anterior total hip replacement -Left hip DJD Condition on Discharge: Good Activity: Per Instructions section Lifting: Wait until after follow-up appointment Bathing: Keep incision dry Bathing Comment: No bathing, pools or hot tubs. Sexual Activity: Wait until after follow-up appointment Exercise/Sports: Wait until after follow-up appointment Driving/Machine Use: No driving. Weightbearing: Full weightbearing Non-emergency contact: Primary Care Provider and Surgeon Call non-emergency contact if: you have any medication questions, your symptoms worsen, your pain is not controlled, your pain is worsening, your pain is unus ual for you, your pain is concerning for you, you have a fever, your temperature is above 101, your wound has increased redness, your wound has increased drainage and your wound pain has increased Follow-up/Referrals: Simba Wallace DO [Primary Care Provider] - Diet: Regular Addtl Attending Provider Instructions: ACTIVITY RECOMMENDATIONS: SELF CARE INSTRUCTIONS AFTER TOTAL HIP REPLACEMENT : Direct Anterior Approach Until the incision and soft tissues around your hip have healed, there is a possibility that the hip prosthesis could dislocate. A. Hip flexion ( Up & Down out of chair or steps ) may be difficult. This is normal. B. Numbness in front of the thigh is also normal for a few weeks. C. Use hand rails when walking on stairs. D. Wear low heeled shoes with non-slip soles. E. Be sure that your floors are free of things that could trip you - throw rugs, electrical cords, small objects. Avoid wet and waxed floors, especially with crutches and canes. F. Try to walk several times a day with rest periods between. G. Continue with all the exercises taught to you in the hospital. Again, make walking a part of your daily routine. SPECIAL CARE INSTRUCTIONS: VERY IMPORTANT TO READ AND REVIEW A. You may still be at risk for phlebitis and blood clots. 1. Wear surgical stockings (ANGIE hose) for 2 weeks after surgery to improve circulation and reduce swelling. 2. Take Lovenox 40mg daily and your home medication Warfarin daily or as directed by your doctor. This is your blood thinner. Discontinue Lovenox when your INR is 2- 3. 3. High risk patients may be prescribed a stronger blood thinner if necessary. 4. If you are on Coumadin normally, your family doctor/sales representative livestock should monitor your blood work. Expect a phone call the day of or the day after bloodwork is drawn to adjust your dosage. B. You must take antibiotics before having dental work, bladder, bowel and other surgery. Your doctor will provide you with a permanent card to carry describing precautions. C. Call [facility] if you have a fever, redness or swelling around the incision, cloudy drainage from incision, or sudden increase in pain in your hip, not relieved by your regular pain medication. D. Please call the office at if you have any concerns or questions about your operation or recovery. * YOU MAY SHOWER, NO TUB BATHS UNTIL CLEARED BY YOUR DOCTOR. - Keep an extra close eye on the top portion of your incision. Be sure to keep clean & dry. * WEAR ANGIE HOSE 20 HOURS PER DAY FOR 2 WEEKS. * YOU MAY PROGRESS FROM A WALKER, TO A CANE, TO INDEPENDENT AT YOUR OWN PACE. * MOST PATIENTS WILL HAVE HOME NURSING FOR THERAPY. IF YOU DECIDE TO DO OUTPATIENT PHYSICAL THERAPY, PLEASE SCHEDULE THIS 3 TIMES PER WEEK. *PREVENA incisional vac is a special dressing covering your incision. This dressing provides a sterile dry environment while you are healing. The dressing is to be left in place for 7 days post-operatively. Your home nurse or surgeon will remove. If you develop any redness or blisters or have any questions notify your surgeon immediately. FOLLOW UP VISIT: If appointment is not already scheduled: Please call [facility] to make a follow-up appointment for 2 weeks after your surgery at . Pending Studies at Discharge: No Stand-Alone Forms: My [facility], Opioid Pain Management, Smoking Cessation Medications and DC Order Prescriptions: New acetaminophen 500 mg Tablet 1,000 mg PO Q8 PRN (Reason: pain/fevers) Qty: 90 RF: 0 oxycodone 5 mg Tablet 5 mg PO Q6H MDD 4 PRN (Reason: pain) Qty: 30 RF: 0 enoxaparin 40 mg/0.4 mL Syringe 40 mg subcut Q24H Qty: 7 RF: 0 sennosides [Senokot] 8.6 mg Tablet 17.2 mg PO HS PRN (Reason: constipation) Qty: 28 RF: 0 Continued atorvastatin 20 mg Tablet 20 mg PO QAM RF: 0 calcium carbonate [Calcium 600] 600 mg calcium (1,500 mg) Tablet 600 mg PO QAM RF: 0 esomeprazole magnesium [Nexium] 40 mg Capsule,Delayed Release(Dr/Ec) 40 mg PO QAM RF: 0 latanoprost [Xalatan] 0.005 % Drops 1 drp OPHTHALMIC (EYE) PM RF: 0 lisinopril 10 mg Tablet 10 mg PO QAM RF: 0 bupropion HCl [Wellbutrin SR] 100 mg Tablet Sustained-Release 12 Hr 100 mg PO QAM RF: 0 metoprolol succinate [Toprol XL] 25 mg Tablet Extended Release 24 Hr 50 mg PO QAM RF: 0 multivitamin Tablet 1 tab PO QAM RF: 0 venlafaxine 75 mg Tablet 75 mg PO QAM RF: 0 polyethylene glycol 3350 [Miralax] 17 gram/dose Powder 17 g PO HS RF: 0 warfarin 6 mg Tablet 4.5 mg PO 5XWK RF: 0 warfarin 6 mg Tablet 6 mg PO 2XWK RF: 0 zolpidem 10 mg Tablet 10 mg PO HS RF: 0 Discharge Orders: Discharge Order (Routine); Ordered 03/21/20 Ordered By: Danny Calvert/Other Patient Handouts: Preventing Deep Vein Thrombosis, ED T.EWilfrido Stockings, A1C Admission Data Admit Date/Time: 03/20/20 09:17 Attending Provider: Danny Villa Admit Provider: Danny Villa Primary Care Provider: Simba Wallace Other Providers: Elzbieta,Home Health Other Interventions: Discharge Summary Assessment (RN) Last Done: 03/21/20 13:41
[2020-03-25] MEDS ORDERED: WARFARIN SOD 6 MG TAB PO SCH (16:00)
== END 2020-03-21 14:41 | disposition home health service (06) ==
LOC: ASU 04:56 → 3E 04:56

== ENCOUNTER 2021-10-18 05:04 | Observation (INO) ==
--- NOTE | 2021-10-15 14:37 | Anesthesiology Consultation ---
Date of Service October 15, 2021 Assessment & Plan (1) Encounter for pre-operative examination: - PCP note (03/15/21): TKA was originally scheduled for 03/26/21 > "cleared for Right total knee arthroplasty." -Cardiology office visit (03/01/21): TKA was originally scheduled for 03/26/21 > "Cardiac clearance- with normal coronary arteries 10/2019[stress test was 10/2019 but cardiac cath was actually 11/2019].. okay to clear from a cardiac standpoint." - COVID screening: Per assessment on 10/15: No known COVID-19 positive contacts or current COVID-19 related symptoms. Travel screen negative. Patient vaccinated. Surgeon arranging preop COVID testing. Awaiting results. - Post-operative course: Surgery was originally scheduled for 03/2021. At that time, case was reviewed by Dr. Scott for outpatient joint pathway and it was determined that patient was not an acceptable candidate for outpatient joint pathway based on patient's multiple co-morbidities/issues: advanced age, cardiac hx, hx DVT, COPD and decreased functional status. Aysha at surgeon's office made aware and states she remove patient from outpatient joint pathway. Chart Review Chart Review: Acceptable Risk for Surgery and Patient seen in Pre Admission Testing History Surgery Operation Date: 10/18/21 13:25 Proposed Procedures p OP: Right Total Knee Arthroplasty - Ean Forbes MD Height/Weight Height: 5 ft 3.5 in Weight: 68.402 kg Allergies Allergy/AdvReac Type Severity Reaction Status Date / Time Sulfa (Sulfonamide Allergy Unknown Itchiness, Verified 10/15/21 12:34 Antibiotics) hives, swelling levofloxacin AdvReac Unknown Arm Verified 10/15/21 12:34 heaviness/pain Medications Home Medications Medication Instructions Recorded Confirmed Last Taken atorvastatin 20 mg tablet 20 mg PO QAM 09/06/19 10/15/21 03/20/20 03:40 bupropion HCl 100 mg tablet,12 hr 100 mg PO QAM 09/06/19 10/15/21 03/20/20 03:40 sustained-release (Wellbutrin SR) calcium carbonate 600 mg calcium 600 mg PO QAM 09/06/19 10/15/21 03/13/20 10:00 (1,500 mg) tablet (Calcium) latanoprost 0.005 % eye drops 1 drp OPHTHALMIC (EYE) QPM 09/06/19 10/15/21 03/19/20 22:00 (Xalatan) lisinopril 10 mg tablet 5 mg PO QAM 09/06/19 10/15/21 03/19/20 10:00 metoprolol succinate 25 mg 50 mg PO QAM 09/06/19 10/15/21 03/20/20 03:40 tablet,extended release 24 hr (Toprol XL) multivitamin 1 tab PO QAM 09/06/19 10/15/21 03/19/20 10:00 polyethylene glycol 3350 17 17 g PO HS 09/06/19 10/15/21 03/19/20 22:00 gram/dose oral powder (Miralax) venlafaxine 75 mg tablet 150 mg PO QAM 09/06/19 10/15/21 03/20/20 03:40 zolpidem 10 mg tablet 12.5 mg PO HS 09/06/19 10/15/21 03/19/20 22:00 pantoprazole 40 mg tablet,delayed 40 mg PO QAM 02/21/21 10/15/21 Unknown release acetaminophen 500 mg tablet 1,000 mg PO UD PRN 10/15/21 10/15/21 Unknown ascorbic acid (vitamin C) 1,000 mg 1 g PO HS 10/15/21 10/15/21 Unknown tablet (Vitamin C) aspirin 81 mg tablet,delayed 81 mg PO DAILY 10/15/21 10/15/21 Unknown release cyanocobalamin (vitamin B-12) 500 500 mcg PO HS 10/15/21 10/15/21 Unknown mcg tablet (Vitamin B-12) donepezil 10 mg tablet (Aricept) 10 mg PO HS 10/15/21 10/15/21 Unknown Past Medical History Medical History Anxiety Atrial fibrillation Chronic back pain COPD (chronic obstructive pulmonary disease) stable, no current issues Depression Dvt femoral (deep venous thrombosis) Remote hx s/p leg trauma, no issues since GERD (gastroesophageal reflux disease) Glaucoma H/O supraventricular tachycardia s/p RFA Hemorrhoids History of diverticulitis s/p bowel resection (1998) Hyperlipidemia Hypertension Memory problem S/P negative Alzheimer's/dementia workup. Found to have low B12 (on supplementation) Osteoarthritis Prediabetes Past Family History Family History Uncle Family history of diabetes mellitus Father Family hx of colon cancer Mother Family history of lung cancer Past Surgical History Surgical History History of arthroscopic knee surgery LEFT History of bowel resection History of cardiac cath 11/2019 ([facility]) > no stents (angiographically normal coronaries) History of cardiac radiofrequency ablation History of carpal tunnel surgery of right wrist History of section X 2 History of esophagogastroduodenoscopy (EGD) History of hemorrhoidectomy History of left hip replacement Left KEZIA (03/20/20): SAB at L3-L4 (x1 attempt) at [facility] History of right hip replacement History of surgery [facility]ICE (06/08/21) Hx of bilateral cataract extraction Hx of colonoscopy Hx of dilation and curettage Hx of exploratory laparotomy Social History Smoking Status: Former smoker tobacco type: cigarettes Do You Dip or Chew Tobacco: No Smoking End Date: SMOKED FOR 35 YRS, QUIT 2 YRS AGO Hx Alcohol Use: Yes Alcohol type: beer, wine and hard liquor alcohol intake frequency: holidays/special occasions only Hx Substance Use: No substance use type: does not use Lab Results Anesthesia Preop Results Results Anesthesia Widget: WBC 7.58 K/uL (4.8-10.8) 10/12/21 Hgb 12.0 g/dL (12.0-16.0) 10/12/21 Hct 38.0 % (37-47) 10/12/21 Plt 263 K/uL (130-400) 10/12/21 Na 141 mmol/L (136-145) 10/12/21 K 4.1 mmol/L (3.5-5.1) 10/12/21 Cl 105 mmol/L (98-107) 10/12/21 CO2 31 mmol/L (21-32) 10/12/21 BUN 16 mg/dl (6-23) 10/12/21 Creat 0.72 mg/dl (0.6-1.2) 10/12/21 Fasting Glucose 108 mg/dl (70-99) H 10/12/21 PT 10.9 Seconds (9.0-12.0) 10/12/21 PTT 25.6 Seconds (21.0-31.0) 10/12/21 INR 1.0 (0.9-1.1) 10/12/21 HA1c 5.9 % (4.5-5.6) H 10/12/21 Urine Color Yellow 10/12/21 Urine Appearance Clear (Clear) 10/12/21 Urine pH 5.0 (4.5-7.5) 10/12/21 Urine Specific [place] 1.026 (1.000-1.030) 10/12/21 Urine Protein Negative (Negative) 10/12/21 Urine Glucose (UA) Negative (Negative) 10/12/21 Urine Ketones Negative (Negative) 10/12/21 Urine Blood Negative (Negative) 10/12/21 Urine Nitrite Negative (Negative) 10/12/21 Urine Bilirubin Negative (Negative) 10/12/21 Urine Urobilinogen Negative (Negative) 10/12/21 Urine Leukocyte Esterase Negative (Negative) 10/12/21 Testing Electrocardiogram Date: 03/01/21 SR at 61bpm. RSR (V1)- non-diagnostic. Chest X-Ray Date: 03/02/21 FINDINGS: No pneumothorax. No pleural effusions. The heart is normal in size. There is mild S-shaped scoliosis of the thoracolumbar spine, unchanged. No new focal lung consolidations to suggest pneumonia. No evidence for pulmonary edema. Old, healed right-sided rib fractures are again noted. Mild emphysema. IMPRESSION: No significant change compared to the prior study. No acute process. Echocardiogram Date: 09/27/19 LVEF 40 to 45%. Moderate AR. Mild LAE. Grade 1 diastolic dysfunction. Borderline LVH. Diffuse hypokinesis. Stress Test Date: 10/25/19 Type: nuclear No significant ischemia. The SPECT perfusion images are within normal limits. LVEF 74%. 85% MPHR. Cardiac Catheterization Date: 11/16/19 Angiographically normal coronary arteries, normal left ventriculogram.
--- NOTE | 2021-10-17 17:12 | History & Physical Report ---
Date of Service October 17, 2021 Assessment & Plan (1) Primary osteoarthritis of right knee: Plan: Treatment options discussed with patient. She has failed conservative measures. She would like to proceed with surgical invention. Risks, benefits and alternatives to surgery including but not limited to infection, DVT, pain, stiffness, need for revision surgery, damage to blood vessels, damage to nerves, PE, , were discussed with the patient and they wish to proceed. Plan for right total knee arthroplasty scheduled for 10/18/2021 at [facility] with Dr. Forbes. We will plan on home health PT postop. We will plan on Eliquis versus Xarelto for 1 month postop for DVT prophylaxis. All questions answered. She will follow-up postoperatively. History of Present Illness Chief Complaint: Right knee pain Primary Care Provider: Simba Wallace DO 75-year-old female with past medical history significant for COPD, hypertension, high cholesterol, anxiety, GERD, history of DVT with a family history of factor V Leiden, A. fib who presents with ongoing right knee pain. Pain is interfering with her daily activities. She has failed conservative measures including injections, NSAIDs, bracing. She would like to proceed with knee replacement. Patient denies headaches, sweats, fevers, chills, double vision, blurred vision, cough, sore throat, dysphagia, chest pain, sob, wheezing, n/v/d/c, numbness, tingling, fatigue, urinary symptoms, mood disorders. ROS positive for right knee pain and stiffness. Allergies Allergy/AdvReac Type Severity Reaction Status Date / Time Sulfa (Sulfonamide Allergy Unknown Itchiness, Verified 10/15/21 12:34 Antibiotics) hives, swelling levofloxacin AdvReac Unknown Arm Verified 10/15/21 12:34 heaviness/pain Home Medications Medication Instructions Recorded Confirmed Type atorvastatin 20 mg tablet 20 mg PO QAM 09/06/19 10/15/21 History bupropion HCl 100 mg tablet,12 hr 100 mg PO QAM 09/06/19 10/15/21 History sustained-release (Wellbutrin SR) calcium carbonate 600 mg calcium 600 mg PO QAM 09/06/19 10/15/21 History (1,500 mg) tablet (Calcium) latanoprost 0.005 % eye drops 1 drp OPHTHALMIC (EYE) QPM 09/06/19 10/15/21 History (Xalatan) lisinopril 10 mg tablet 5 mg PO QAM 09/06/19 10/15/21 History metoprolol succinate 25 mg 50 mg PO QAM 09/06/19 10/15/21 History tablet,extended release 24 hr (Toprol XL) multivitamin 1 tab PO QAM 09/06/19 10/15/21 History polyethylene glycol 3350 17 17 g PO HS 09/06/19 10/15/21 History gram/dose oral powder (Miralax) venlafaxine 75 mg tablet 150 mg PO QAM 09/06/19 10/15/21 History zolpidem 10 mg tablet 12.5 mg PO HS 09/06/19 10/15/21 History pantoprazole 40 mg tablet,delayed 40 mg PO QAM 02/21/21 10/15/21 History release acetaminophen 500 mg tablet 1,000 mg PO UD PRN 10/15/21 10/15/21 History ascorbic acid (vitamin C) 1,000 mg 1 g PO HS 10/15/21 10/15/21 History tablet (Vitamin C) aspirin 81 mg tablet,delayed 81 mg PO DAILY 10/15/21 10/15/21 History release cyanocobalamin (vitamin B-12) 500 500 mcg PO HS 10/15/21 10/15/21 History mcg tablet (Vitamin B-12) donepezil 10 mg tablet (Aricept) 10 mg PO HS 10/15/21 10/15/21 History Past Med/Surg History Medical History Anxiety Atrial fibrillation Chronic back pain COPD (chronic obstructive pulmonary disease) stable, no current issues Depression Dvt femoral (deep venous thrombosis) Remote hx s/p leg trauma, no issues since GERD (gastroesophageal reflux disease) Glaucoma H/O supraventricular tachycardia s/p RFA Hemorrhoids History of diverticulitis s/p bowel resection (1998) Hyperlipidemia Hypertension Memory problem S/P negative Alzheimer's/dementia workup. Found to have low B12 (on supplementation) Osteoarthritis Prediabetes Surgical History History of arthroscopic knee surgery LEFT History of bowel resection History of cardiac cath 11/2019 (Jerrell) > no stents (angiographically normal coronaries) History of cardiac radiofrequency ablation History of carpal tunnel surgery of right wrist History of section X 2 History of esophagogastroduodenoscopy (EGD) History of hemorrhoidectomy History of left hip replacement Left KEZIA (03/20/20): SAB at L3-L4 (x1 attempt) at [facility] History of right hip replacement History of surgery WATCHMANS DEVICE (06/08/21) Hx of bilateral cataract extraction Hx of colonoscopy Hx of dilation and curettage Hx of exploratory laparotomy Family History Uncle Family history of diabetes mellitus Father Family hx of colon cancer Mother Family history of lung cancer Social History (Updated 02/21/21 @ 09:16 by Meg Diggs RN) Smoking Status: Former smoker Second Hand Exposure: Yes (PARENTS SMOKED); Hx Alcohol Use: Yes Alcohol type: beer, wine and hard liquor Hx Substance Use: No Preferred Language: [place] Communication Ability: Effective Motorcycle Tester Required: No Beliefs That Will Affect Care: None marital status: Current Living Situation: Spouse current occupational status: employed 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 Mild effusion. Diffuse tend erness. Positive Neil's. Stable valgus and varus stress. Painful range of motion 0 to 125 degrees. Skin: no rashes, warm and dry Neurologic: patellar DTR's 2+ bilat, sensation intact Psychiatric: A+Ox3, euthymic affect Results & Data ([facility]) Diagnostic Findings Right knee: Valgus alignment with significant joint space narrowing lateral compartment. Periarticular osteophyte formation and subchondral sclerosis.
[2021-10-18] MEDS ORDERED: ROPIVACAINE 0.5% HCL/PF 150 MG, BUPIVACAINE 0.75% MPF 20 ML, EPINEPHrine 30MG/30ML (OR ... INSTIL SCH (06:00)
[2021-10-18] MEDS ORDERED: TRANEXAMIC ACID 1,000 MG **IV Pre-op IV SCH (06:00)
[2021-10-18] MEDS ORDERED: ceFAZolin 1000MG 1,000 MG/7.5 ML SYR IV SCH (06:00)
[2021-10-18] MEDS ORDERED: GABAPENTIN 300 MG CAP PO SCH (06:00)
[2021-10-18] MEDS ORDERED: LR 500ML BOLUS, THEN 15ML/HR IV SCH (06:00)
[2021-10-18] MEDS ORDERED: METOCLOPRAMIDE HCL 10 MG TABLET PO SCH (06:00)
[2021-10-18] MEDS ORDERED: FAMOTIDINE 20 MG TAB PO SCH (06:00)
[2021-10-18] MEDS ORDERED: TRANEXAMIC ACID 1,000 MG **IV Intra-op IV SCH (06:00)
[2021-10-18] MEDS ORDERED: dexAMETHasone 4 MG TAB PO SCH (06:00)
[2021-10-18] MEDS ORDERED: ACETAMINOPHEN 500 MG TAB PO SCH (06:00)
[2021-10-18] MEDS ORDERED: ROCURONIUM BROMIDE 10 MG/ML 5 ML VIAL IV ONE (06:52)
[2021-10-18] MEDS ORDERED: PROPOFOL IV EMULSION 10 MG/ML 20 ML VIAL IV ONE ×2 (06:52→08:31)
[2021-10-18] MEDS ORDERED: LIDOCAINE 2% 2 ML VIAL/AMP(20MG/ML) INFIL ONE (06:52)
[2021-10-18] MEDS ORDERED: fentaNYL citrate 100 MCG/2 ML VIAL ONE (06:53)
[2021-10-18] MEDS ORDERED: MIDAZOLAM HCL 1 MG/ML 2ML VIAL ONE (06:53)
--- NOTE | 2021-10-18 07:11 | History & Physical Bridge Note ---
Date of Service October 18, 2021 History & Physical Bridge Note I have examined the patient, reviewed the History & Physical and in the interval since the performance of the History & Physical I have noted the following changes of clinical significance: no changes noted
[2021-10-18] MEDS ORDERED: ORTHO JOINT ANESTHETIC ONE (07:19)
[2021-10-18] MEDS ORDERED: BUPIVACAINE 0.5 % 5 MG/1 ML PF 10ML VIAL ONE (07:26)
[2021-10-18] MEDS ORDERED: ROPIVACAINE 0.5% 5 MG/ML 30 ML VIAL ONE (07:26)
[2021-10-18] MEDS ORDERED: HYDROmorphone INJ 1 MG/ML SYRINGE IV PRN (09:12)
[2021-10-18] MEDS ORDERED: NALOXONE HCL 0.4 MG/1 ML VIAL/CARP IV PRN ×2 (09:12→11:05)
[2021-10-18] MEDS ORDERED: FLUMAZENIL 0.1 MG/1 ML 10 ML VIAL IV PRN (09:12)
[2021-10-18] MEDS ORDERED: PROMETHAZINE HCL 12.5 MG in SODIUM CHLORIDE 0.9% 50 ML IV PRN (09:12)
[2021-10-18] MEDS ORDERED: LABETALOL HCL IV 5 MG/ML 20ML IV PRN (09:12)
[2021-10-18] MEDS ORDERED: ePHEDrine sulfate 50 MG/ML AMP IV PRN (09:12)
[2021-10-18] MEDS ORDERED: ATROPINE SULFATE 0.1 MG/ML 10ML SYR IV PRN (09:12)
[2021-10-18] MEDS ORDERED: fentaNYL citrate 100 MCG/2 ML VIAL IV PRN (09:12)
[2021-10-18] MEDS ORDERED: ONDANSETRON INJ 2 MG/ML 2 ML VIAL IV PRN (09:12)
--- NOTE | 2021-10-18 09:22 | Post Operative Brief Note ---
Immediate Post Op Note v1 Date of Surgery October 18, 2021 Pre & Post Diagnosis Operation Date: 10/18/21 07:15 Pre-Op Diagnosis: Right Knee Osteoarthritis Post-Op Diagnosis: Right Knee Osteoarthritis I identified the patient and participated in the time-out.: Yes Procedure Operation Date: 10/18/21 07:15 Actual Procedures p Right Total Knee Arthroplasty(Right) - Ean Forbes MD Surgeon Ean Forbes MD Licensed Retail Supervisor Evin AGUIRRE Estimated Blood Loss 5 Findings Consistent with Post-Op Diagnosis Specimens Bone cuts Drains Hemovac Drain (dual drain) Anesthesia Type MAC Spinal Regional Complications none Disposition Disposition: Recovery Room Overlapping Procedure I was immediately available: during the entire case.
--- NOTE | 2021-10-18 09:52 | Operative Report ---
Post Operative Report Pre & Post Diagnosis Operation Date: 10/18/21 07:15 Pre-Op Diagnosis: Right Knee Osteoarthritis Post-Op Diagnosis: Right Knee Osteoarthritis I identified the patient and participated in the time-out.: Yes Procedure Operation Date: 10/18/21 07:15 Actual Procedures p Right Total Knee Arthroplasty(Right) - Ean Forbes MD Surgeon Ean Forbes MD Analysis Tester Evin AGUIRRE Estimated Blood Loss 5 Findings Consistent with Post-Op Diagnosis Specimens Bone cuts Drains 2 Hemovac Anesthesia Type MAC Spinal Regional Complications none Disposition Disposition: Recovery Room Indications 75-year-old female with progressive bilateral knee osteoarthritis more painful on the right. Radiographs demonstrates [id number] lateral compartment just some moderate patellofemoral OA. Mild valgus alignment to the knee. Description of Procedure Patient was taken to the operating room placed supine on the operating table and anesthetized under spinal MAC regional block anesthesia. Exam under anesthesia demonstrated good range of motion no instability moderately large effusion mild valgus alignment. A pneumatic tourniquet was placed about the moderately obese thigh of the right lower extremity. The right lower extremity was prepped and draped in usual sterile fashion. The leg was elevated exsanguinated with an Esmarch bandage and the pneumatic tourniquet was raised to 325 mm mercury. An anterior incision was made across the right knee. The skin was incised longitudinally subcutaneous flaps were elevated and an incision was made through the medial retinaculum extending up into the mid third of the quadriceps tendon and extended down to the medial tibial tubercle. Intra-articular findings demonstrated chronic osteoarthritis lateral compartment with degenerative lateral meniscus tear grade 4 arthritis lateral femoral condyle and tibia with moderate patellofemoral osteoarthritis grade 3. The knee was exposed by excising the infrapatellar fat pad, excising the meniscal remnants and anterior cruciate ligament. Any inflamed synovial tissue was resected. The fat pad over the anterior femur was resected for placement of the component in that area. The lateral synovial bands were release. The femur was exposed. The custom femoral cutting block was pinned in position. The distal femoral cutting block was applied. The distal femoral cut was made with the oscillating saw. Quality bone was quite good and she had solid bone. The size 9, 4-in-1 cutting block was placed. The anterior and posterior chamfer cuts were made. The knee was extended and a subperiosteal peel lateral release was performed around the patella. The patella width was measured and width was reproduced using freehand cut technique. The 29 millimeter symmetrical patella was used. 3 drill holes are made for the pegs. The tibia was exposed. A custom tibial cutting block was positioned and drill holes were made for the cutting guide. Cutting guide was placed and the proximal cut was made with the oscillating saw. All osteophytes were resected. The lamina assembler unit was used to assess ligamentous balance and the ligaments were balanced in extension and flexion. The tibia was reexposed and measured for a size D tibial component. This was externally rotated in line with the tibial tubercle and the fixation pins were drilled. The proximal tibia was fashioned with the drill and punch. The size 9 CR femoral trial was inserted. The trial MC inserts were used. The 11 mm insert gave balanced ligaments through full range of motion. The patella tracked centrally. the trials were removed. The orthomix anesthetic cocktail was injected per protocol. The knee was then copiously irrigated with pulsatile lavage saline solution. The final components were cemented with Refobacin bone cement. The final components were Katerina Biomet persona right 9 narrow CR femoral component, D tibial component, 11 MC polyethylene tibial insert, 29 symmetrical patella. After the cement cured with the knee in full extension the Betadine soak was used per protocol. The knee joint was copiously irrigated with pulsatile lavage saline solution . 2 drains were brought out laterally and connected to a Hemovac. The quadriceps tendon and medial retinaculum were closed with interrupted [id number] #1 Vicryl sutures. The knee was taken through a full range of motion and repair was secure. The subcutaneous tissues were closed with 2-0 Vicryl sutures and skin was closed with 3 oh strata fix and Prineo Dermabond glue system. Sterile dressings were applied and the patient tolerated the procedure well. Evin AGUIRRE my physician him assistant, assisted in soft tissue retraction, instrument management ,leg positioning, the closure and will participate in the postoperative care of the patient. I attest to the content of the Intraoperative Record and any orders documented therein. Any exceptions are noted below.
[2021-10-18 10:31] LABS: Hematocrit (blood only) 34.2 % (37-47)
--- NOTE | 2021-10-18 10:44 | Anesthesiology Progress Note ---
Date of Service October 18, 2021 Anesthesia Post Procedure Vital Signs Vital Signs: Temp Pulse Pulse Resp BP Pulse Ox 10/18/21 10:30 65 18 153/68 H 98 10/18/21 10:20 61 14 154/62 H 97 10/18/21 10:10 60 16 162/63 H 92 10/18/21 10:00 65 16 162/74 H 96 10/18/21 09:50 67 20 161/67 H 97 10/18/21 09:40 36.1 C L 74 18 163/70 H 96 10/18/21 05:48 36.8 C 68 20 169/64 H 96 Pain Intensity Right Knee: Pain Intensity: 2 Transfer of Care Handoff Completed per policy Notes Mental Status: alert / awake / arousable Patient Amnestic to Procedure: Yes Nausea / Vomiting: adequately controlled Pain: adequately controlled Airway Patency, RR, SpO2: stable & adequate BP & HR: stable & adequate Hydration State: stable & adequate Neuraxial Anesthesia: was administered and sensory block is resolving Anesthetic Complications: no major complications apparent
[2021-10-18] MEDS ORDERED: METOCLOPRAMIDE HCL INJ 5 MG/ML 2 ML VIAL IV PRN (11:05)
[2021-10-18] MEDS ORDERED: bisacodyL 10 MG SUPP PR PRN (11:05)
[2021-10-18] MEDS ORDERED: HYDROmorphone INJ 0.5 MG/0.5 ML SYR IV PRN (11:05)
[2021-10-18] MEDS ORDERED: MAGNESIUM HYDROXIDE SUSP 30 ML UDC PO PRN (11:05)
--- NOTE | 2021-10-18 11:20 | XRay Report ---
RIGHT KNEE 2 VIEWS History: Right total knee arthroplasty. Degenerative arthritis. Postop. FINDINGS: The patient is status post a right total knee arthroplasty. The hardware is intact. No frac ture or dislocation. Surgical drains are in place. IMPRESSION: Right total knee arthroplasty. No evidence for hardware complication. ACT 112: Negative or not required by law. Electronically signed by: Boy Hernández M.D. 10/18/2021 11:19 AM
--- NOTE | 2021-10-18 11:50 | Hospitalist Consultation ---
Date of Consultation October 18, 2021 Assessment & Plan (1) Primary osteoarthritis of right knee: -S/P right TKA. Without pain, has ROM, pulses and sensation intact, without pallor. -Defer management of IVF/pain/abx/bowel regimen to primary team. -CBC and BMP ordered for tomorrow AM. (2) Atrial fibrillation: -Watchmann procedure done in June 2021, no longer on Coumadin. -Continue metoprolol 50 mg daily on POD#1. -Patient it ordered Xarelto for one month post-op by primary team. (3) Hypertension: -Continue metoprolol, hold lisinopril on POD#1. (4) Hyperlipidemia: -Continue atorvastatin 20 mg daily. (5) COPD (chronic obstructive pulmonary disease): -Chronic, stable, patient not on any inhalers at home. (6) GERD (gastroesophageal reflux disease): -Continue protonix 40 mg daily. (7) Depression: -Continue venlafaxine 150 mg daily, wellbutrin 100mg daily. (8) Anxiety: -Prescribed Xanax TID PRN. (9) Memory problem: -Continue Aricept 10 gm po HS. -OBS med/surg. -SCDS, Xarelto for DVT ppx ordered by primary team, -Full Code. Supervising Physician Co-Signing Physician Notes I personally saw and examined the patient. I verified all benjamin points and agree with Annia Agee PA-C with the following exceptions and/or additions: 75 yo female POD #0 right total knee arthroplasty. Doing well post operatively. HS1+2, no murmurs, RRR, Chest CTAB, Abd SNT A/P HTN - given current blood pressure will just continue her usual lisinopril and metoprolol Paroxysmal atrial fibrillation - s/p Watchman, no need for anticoagulation from this standpoint. Appears to have RR on exam today VTE Prophylaxis - per primary orthopedic team with Xarelto History of Present Illness Reason for Consultation: post op medical management Attending Physician: Ean Forbes MD History of Present Illness Ms. Burden is a 75 year old female with PMHx significant for COPD, HTN, high cholesterol, anxiety, GERD, afib, hx of DVT who had a right TKA done today with Dr. Forbes due to pain that was interfering with her daily activities. She has failed conservative measures including NSAIDs, bracing, as well as injections. Today, she is POD#0, feels well. She is on 2L NC for reported SpO2 around 90% in PACU, no difficulty breathing at present. Slightly hypertensive with BSP 150s. Without any pain at the procedural site, no fever/chills, chest pain, palpitations, SOB, cough, n/v, abdominal pain, numbness/tingling, focal weakness. Current medications include lisinopril 5 mg, metoprolol succ ER 50 mg, atorvastatin 20 mg, Claritin 10 mg, pantoprazole 40 mg, venlafaxine 75 mg, ambien 12.5mg, wellbutrin SR 100 mg, xanax 0.5 mg PRN. Had a watchmann procedure in June 2021, no longer on Coumadin for her afibb. Allergies Allergy/AdvReac Type Severity Reaction Status Date / Time Sulfa (Sulfonamide Allergy Unknown Itchiness, Verified 10/18/21 05:35 Antibiotics) hives, swelling levofloxacin AdvReac Unknown Arm Verified 10/18/21 05:36 heaviness/pain Home Medications Medication Instructions Recorded Confirmed Type atorvastatin 20 mg tablet 20 mg PO QAM 09/06/19 10/18/21 History bupropion HCl 100 mg tablet,12 hr 100 mg PO QAM 09/06/19 10/18/21 History sustained-release (Wellbutrin SR) calcium carbonate 600 mg calcium 600 mg PO QAM 09/06/19 10/18/21 History (1,500 mg) tablet (Calcium) latanoprost 0.005 % eye drops 1 drp OPHTHALMIC (EYE) QPM 09/06/19 10/18/21 History (Xalatan) lisinopril 10 mg tablet 5 mg PO QAM 09/06/19 10/18/21 History metoprolol succinate 25 mg 50 mg PO QAM 09/06/19 10/18/21 History tablet,extended release 24 hr (Toprol XL) multivitamin 1 tab PO QAM 09/06/19 10/18/21 History polyethylene glycol 3350 17 17 g PO 09/06/19 10/18/21 History gram/dose oral powder (Miralax) venlafaxine 75 mg tablet 150 mg PO QAM 09/06/19 10/18/21 History zolpidem 10 mg tablet 12.5 mg PO 09/06/19 10/18/21 History pantoprazole 40 mg tablet,delayed 40 mg PO QAM 02/21/21 10/18/21 History release acetaminophen 500 mg tablet 1,000 mg PO UD PRN 10/15/21 10/18/21 History ascorbic acid (vitamin C) 1,000 mg 1 g PO HS 10/15/21 10/18/21 History tablet (Vitamin C) aspirin 81 mg tablet,delayed 81 mg PO DAILY 10/15/21 10/18/21 History release cyanocobalamin (vitamin B-12) 500 500 mcg PO HS 10/15/21 10/18/21 History mcg tablet (Vitamin B-12) donepezil 10 mg tablet (Aricept) 10 mg PO HS 10/15/21 10/18/21 History acetaminophen 500 mg tablet 1,000 mg PO Q8 14 Days #84 tab 10/19/21 Rx (Tylenol Extra Strength) oxycodone 5 mg tablet 5 mg PO Q4H PRN #30 tab MDD 6 10/19/21 Rx polyethylene glycol 3350 17 gram 17 g PO DAILY PRN #5 ea 10/19/21 Rx oral powder packet (Miralax) rivaroxaban 10 mg tablet (Xarelto) 10 mg PO DAILY 30 Days #30 tab 10/19/21 Rx Patient History Medical History (Updated 10/18/21 @ 11:36 by Annia Agee PA-C) Anxiety Atrial fibrillation Chronic back pain COPD (chronic obstructive pulmonary disease) stable, no current issues Depression Dvt femoral (deep venous thrombosis) Remote hx s/p leg trauma, no issues since GERD (gastroesophageal reflux disease) Glaucoma H/O supraventricular tachycardia s/p RFA Hemorrhoids History of diverticulitis s/p bowel resection (1998) Hyperlipidemia Hypertension Memory problem S/P negative Alzheimer's/dementia workup. Found to have low B12 (on supplementation) Osteoarthritis Prediabetes Surgical History History of arthroscopic knee surgery LEFT History of bowel resection History of cardiac cath 11/2019 ([facility]) > no stents (angiographically normal coronaries) History of cardiac radiofrequency ablation History of carpal tunnel surgery of right wrist History of section X 2 History of esophagogastroduodenoscopy (EGD) History of hemorrhoidectomy History of left hip replacement Left KEZIA (03/20/20): SAB at L3-L4 (x1 attempt) at [facility] History of right hip replacement History of surgery WATCHMANS DEVICE (06/08/21) Hx of bilateral cataract extraction Hx of colonoscopy Hx of dilation and curettage Hx of exploratory laparotomy Family History Uncle Family history of diabetes mellitus Father Family hx of colon cancer Mother Family history of lung cancer Social History (Updated 02/21/21 @ 09:16 by Meg Diggs RN) Smoking Status: Former smoker Smoking End Date: SMOKED FOR 35 YRS, QUIT 2 YRS AGO; Second Hand Exposure: Yes (PARENTS SMOKED); Do You Dip or Chew Tobacco: No; Hx Alcohol Use: Yes Alcohol type: beer, wine and hard liquor Hx Substance Use: No Preferred Language: [place] Communication Ability: Effective Residential Property Consultant Required: No Beliefs That Will Affect Care: None marital status: Current Living Situation: Spouse current occupational status: employed 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 Other Information That Helps Us Care for You: No Feels Safe at Home: Yes Assistive Devices: Cane Review of Systems Review of Systems: Constitutional: No fever/chills, weakness, fatigue, myalgias, anorexia, night sweats Eyes: No diplopia, no worsening or blurred vision ENT: normal hearing, no trouble swallowing Respiratory: No cough, sputum, dyspnea at rest or on exertion Cardiovascular: No chest pain, tightness or palpitations Abdomen: No pain, nausea, vomiting, diarrhea or constipation : Denies dysuria, hematuria, increased urgency/frequency, urinary retention Musculoskeletal: No joint pain, calf pain, swelling Neurologic: No weakness, numbness/tingling, or balance problems Psychiatric: No anxiety or depression Skin: No rash or itch Physical Exam Physical Exam: General: awake, alert, no apparent distress Head: Normocephalic, atraumatic ENT: PERRL, EOMI, no pharyngeal exudate, mucous membranes moist Chest: Clear to auscultation, on room air, no adventitious breath sounds Cardiac: Regular rate and rhythm, no murmur, no JVD, normal peripheral pulses, good capillary refill Abdominal: NABS x 4 quadrants, soft, nontender to palpation, no rebound, guarding or tenderness Extremities: Right leg in wrap s/p TKA; Normal inspection, no peripheral edema or erythema, calfs nontender to palpation Psych: Normal mood and affect Neuro: AAO x 3, strength intact bilaterally and rated 5/5, no motor deficits, speech is clear, no peripheral sensory deficits Skin: no rash or erythema Results & Data Results & Data ([facility]) Vital Signs (Past 12 Hours) Vital Signs Temp Pulse Pulse Resp BP Pulse Ox 10/18/21 10:45 36.2 C L 62 14 151/74 H 98 10/18/21 10:30 65 18 153/68 H 98 10/18/21 10:20 61 14 154/62 H 97 10/18/21 10:10 60 16 162/63 H 92 10/18/21 10:00 65 16 162/74 H 96 10/18/21 09:50 67 20 161/67 H 97 10/18/21 09:40 36.1 C L 74 18 163/70 H 96 10/18/21 05:48 36.8 C 68 20 169/64 H 96 Laboratory Results Abnormal lab results 10/18/21 10/18/21 Range/Units 09:46 10:21 Hgb 11.0 L (12.0-16.0) g/dL Hct 34.2 L (37-47) % POC Glucose 129 H (70-99) mg/dl Diagnostic Findings Knee X-Ray 10/18/21 09:42 RIGHT KNEE 2 VIEWS History: Right total knee arthroplasty. Degenerative arthritis. Postop. FINDINGS: The patient is status post a right total knee arthroplasty. The hardware is intact. No fracture or dislocation. Surgical drains are in place. IMPRESSION: Right total knee arthroplasty. No evidence for hardware complication. ACT 112: Negative or not required by law. Electronically signed by: Boy Hernández M.D. 10/18/2021 11:19 AM PG Care Time/CCT Total # of Minutes Spent Total Time Spent with Patient: Total time spent is greater than 50% in coordination of care (as documented) at patient's floor/unit and/or counseling patient: Coding Level of Care Code 55081 Inpt Consult Level 3 Diagnoses Primary osteoarthritis of right knee M17.11 Atrial fibrillation I48.91 Hyperlipidemia E78.5 Hypertension I10 COPD (chronic obstructive pulmonary disease) J44.9 GERD (gastroesophageal reflux disease) K21.9 Depression F32.9 Anxiety F41.9 Memory problem R41.3
[2021-10-18] MEDS: SODIUM CHLORIDE 0.9% 1000ML 1,000 ML IV SCH ×2 (12:20→21:05)
[2021-10-18] MEDS: ACETAMINOPHEN 500 MG TAB PO SCH ×2 (14:18→21:04)
[2021-10-18] MEDS: ceFAZolin 1000MG 1,000 MG/7.5 ML SYR IV SCH (18:16)
[2021-10-18] MEDS: oxyCODONE HCL IR 5 MG TAB (IMMEDIATE RELEASE) PO PRN (18:30)
[2021-10-18] MEDS: ASCORBIC ACID 500 MG TAB PO SCH (20:50)
[2021-10-18] MEDS: CYANOCOBALAMIN (B-12) 500 MCG TABLET PO SCH (20:51)
[2021-10-18] MEDS: DOCUSATE SODIUM 100 MG CAP PO SCH (20:52)
[2021-10-18] MEDS: DONEPEZIL HCL 10 MG TAB PO SCH (20:52)
[2021-10-18] MEDS: LATANOPROST 0.005% OP SOLN 2.5 ML BTL OP SCH (20:53)
[2021-10-18] MEDS: POLYETHYLENE (MIRALAX) 17 GM PACK PO SCH (20:54)
[2021-10-18] MEDS: SENNA 8.6 MG TAB PO SCH (20:54)
[2021-10-18] MEDS: ZOLPIDEM TARTRATE 5 MG TAB PO SCH (21:03)
[2021-10-19] MEDS: ceFAZolin 1000MG 1,000 MG/7.5 ML SYR IV SCH (00:57)
[2021-10-19] MEDS: oxyCODONE HCL IR 5 MG TAB (IMMEDIATE RELEASE) PO PRN ×3 (01:01→13:45)
[2021-10-19] MEDS: ACETAMINOPHEN 500 MG TAB PO SCH ×3 (05:15→21:48)
[2021-10-19 08:06] LABS: Hematocrit (blood only) 29.4 % (37-47); Hemoglobin 9.7 g/dL (12.0-16.0); Mean Corpuscular Hemoglobin 29.7 pg (25-34); Mean Corpuscular Volume 89.9 fL (80-100); Mean Platelet Volume 9.8 fL (7.4-10.4); Platelet Count 245 K/uL (130-400); RDW Coefficient of Variation 15.1 % (11.5-14.5); RDW Standard Deviation 50.2 fL (36.4-46.3); Red Blood Count 3.27 M/uL (4.2-5.4); White Blood Count 11.61 K/uL (4.8-10.8)
[2021-10-19] MEDS: lisinopril 5 MG TAB PO SCH (08:09)
[2021-10-19] MEDS: buPROPion SR 100 MG TABCR PO SCH (08:09)
[2021-10-19] MEDS: VENLAFAXINE HCL XR 75 MG CAPXR PO SCH (08:10)
[2021-10-19] MEDS: MULTIVITAMIN TAB PO SCH (08:11)
[2021-10-19] MEDS: ATORVASTATIN 20 MG TAB PO SCH (08:11)
[2021-10-19] MEDS: METOPROLOL SUCC 50MG EXT REL TAB PO SCH (08:12)
[2021-10-19] MEDS: CALCIUM 600MG + VIT D 400 IU TAB PO SCH (08:12)
[2021-10-19] MEDS: RIVAROXABAN 10 MG TABLET PO SCH (08:12)
[2021-10-19] MEDS: PANTOprazole 40 MG TAB PO SCH (08:13)
[2021-10-19] MEDS: DOCUSATE SODIUM 100 MG CAP PO SCH ×2 (08:13→21:49)
[2021-10-19 08:28] LABS: BUN Creatinine Ratio 27.3 (10-20); Calcium 8.4 mg/dl (8.5-10.1); Creatinine Clr Calc Pharmacy 72.5 ml/min; Est GFR (African American) 101.6 ml/min; Est GFR (Non-African American) 87.6 ml/min; Potassium 3.5 mmol/L (3.5-5.1)
[2021-10-19] MEDS ORDERED: NON-FORMULARY MEDICATION (Multivitamin Tablet) PO SCH (09:00)
--- NOTE | 2021-10-19 09:20 | Orthopedic Progress Note ---
Date of Service October 19, 2021 Assessment & Plan (1) Primary osteoarthritis of right knee: Plan: POD 1 s/p Right TKA PT/OT protocols. WBAT. DVT prophylaxis - Rivaroxaban, SCD's, ANGIE's Pain management as written. HTN - as per Hospitalist service DC planning - Plan for HH services when dc'd. Admission and Anticipated Discharge Date Admission Date: October 18, 2021 Subjective POD 1 Pt sitting up in bed awake, alert. No complaints. Denies SOB,CP, LH. Pain controlled. States she had foot drop last night but she now has good ROM of the foot this AM. Discussed this was likely due to intra op injection given for pain control. Pt about to undergo PT session. SBP elevated. Asymptomatic. Physical Exam Physical Exam: Dressings C/D/I. Calves soft, NT. NV now intact. Good ROM of right foot with DF/PF. Head foot drop last night. HV drainage 75ml latest shift. Results & Data ([facility]) Vital Signs (Past 12 Hours) Vital Signs Temp Pulse Resp BP Pulse Ox 10/19/21 08:07 66 181/74 H 10/19/21 07:31 36.5 C 84 16 186/74 H 92 10/19/21 04:30 36.4 C L 96 H 18 176/76 H 93 10/19/21 00:30 36.9 C 74 16 165/71 H 94 Laboratory Results Laboratory Results WBC 11.61 K/uL (4.8-10.8) H 10/19/21 07:48 RBC 3.27 M/uL (4.2-5.4) L 10/19/21 07:48 Hgb 9.7 g/dL (12.0-16.0) L 10/19/21 07:48 Hct 29.4 % (37-47) L 10/19/21 07:48 MCV 89.9 fL (80-100) 10/19/21 07:48 MCH 29.7 pg (25-34) 10/19/21 07:48 MCHC 33.0 g/dL (32-36) 10/19/21 07:48 RDW Std Deviation 50.2 fL (36.4-46.3) H 10/19/21 07:48 RDW Coeff of Hima 15.1 % (11.5-14.5) H 10/19/21 07:48 Plt Count 245 K/uL (130-400) 10/19/21 07:48 MPV 9.8 fL (7.4-10.4) 10/19/21 07:48 Sodium 140 mmol/L (136-145) 10/19/21 07:48 Potassium 3.5 mmol/L (3.5-5.1) 10/19/21 07:48 Chloride 108 mmol/L (98-107) H 10/19/21 07:48 Carbon Dioxide 27 mmol/L (21-32) 10/19/21 07:48 Anion Gap 5 (3-11) 10/19/21 07:48 BUN 18 mg/dl (6-23) 10/19/21 07:48 Creatinine 0.66 mg/dl (0.6-1.2) 10/19/21 07:48 Est Cr Clr Drug Dosing 72.5 ml/min 10/19/21 07:48 Est GFR ( Amer) 101.6 ml/min 10/19/21 07:48 Est GFR (Non-Af Amer) 87.6 ml/min 10/19/21 07:48 BUN/Creatinine Ratio 27.3 (10-20) H 10/19/21 07:48 Glucose 116 mg/dl (70-99(Fasting)) H 10/19/21 07:48 POC Glucose 129 mg/dl (70-99) H 10/18/21 09:46 Calcium 8.4 mg/dl (8.5-10.1) L 10/19/21 07:48 SARS-CoV-2, RNA, NAAT NEGATIVE (NEGATIVE) 10/18/21 05:29 Blood Type A Negative 10/18/21 05:47 Antibody Screen NEGATIVE 10/18/21 05:47 Impressions Knee X-Ray 10/18/21 09:42 RIGHT KNEE 2 VIEWS History: Right total knee arthroplasty. Degenerative arthritis. Postop. FINDINGS: The patient is status post a right total knee arthroplasty. The hardware is intact. No fracture or dislocation. Surgical drains are in place. IMPRESSION: Right total knee arthroplasty. No evidence for hardware complication. ACT 112: Negative or not required by law. Electronically signed by: Boy Hernández M.D. 10/18/2021 11:19 AM
[2021-10-19] MEDS: ONDANSETRON INJ 2 MG/ML 2 ML VIAL IV PRN ×2 (11:15→21:36)
--- NOTE | 2021-10-19 11:29 | Hospitalist Progress Note ---
Date of Service October 19, 2021 Assessment & Plan (1) Primary osteoarthritis of right knee: Plan: -S/P right TKA. Without pain, has ROM, pulses and sensation intact, without pallor. -Defer management of IVF/pain/abx/bowel regimen to primary team. (2) Postoperative anemia: Plan: Recheck CBC tomorrow (3) Nausea and vomiting: Plan: Continue to monitor. No abdominal pain on exam. Suspect related to oxycodone she had at 5am this morning. Ondansetron PRN. Would avoid metoclopramide. (4) Atrial fibrillation: Plan: -Watchmann procedure done in June 2021, no longer on Coumadin. -Continue metoprolol 50 mg daily. -Patient it ordered Xarelto for one month post-op by primary team. (5) Hypertension: Plan: -Continue metoprolol, continue lisinopril. Would hold off additional acute management for HTN in post operative period as likely elevated due to pain and surgery. (6) Hyperlipidemia: Plan: -Continue atorvastatin 20 mg daily. (7) COPD (chronic obstructive pulmonary disease): Plan: -Chronic, stable, patient not on any inhalers at home. (8) GERD (gastroesophageal reflux disease): Plan: -Continue protonix 40 mg daily. (9) Depression: Plan: -Continue venlafaxine 150 mg daily, wellbutrin 100mg daily. (10) Anxiety: Plan: -Prescribed Xanax TID PRN. (11) Memory problem: Plan: -Continue Aricept 10 gm po HS. Plan: Thank you for the consult would consider continued stay in hospital another night given hemoglobin drop and nausea and vomiting this morning. Will continue to review patient while here if she stays. Admission and Anticipated Discharge Date Admission Date: October 18, 2021 Subjective Patient with nausea and vomiting episode this morning. Hemovac bag also dislodged - orthopedics reportedly contacted regarding this. Hgb drop from 11 -> 9.7. patient reports no chest pain, shortness of breath or dizziness after working with physical therapy earlier today. No black or bright red blood in stool. Review of Systems Review of Systems: All systems reviewed & are unremarkable except as noted in Subjective Physical Exam Constitutional: WD/WN, vitals as above Eyes: + anicteric sclerae; normal pupil size Respiratory: normal respiratory effort, lungs clear to auscultation Cardiovascular: RRR, no murmur, no edema Gastrointestinal (Abdomen): normal bowel sounds, soft, nontender, no hepatosplenomegaly Skin: no rashes, warm and dry (hemovac in place) Neurologic: moves all extremities and awake; not confused Psychiatric: A+Ox3, euthymic affect Results & Data Results & Data ([facility]) Vital Signs (Past 12 Hours) Vital Signs Temp Pulse Resp BP Pulse Ox 10/19/21 10:02 153/69 H 10/19/21 08:07 66 181/74 H 10/19/21 07:31 36.5 C 84 16 186/74 H 92 10/19/21 04:30 36.4 C L 96 H 18 176/76 H 93 10/19/21 00:30 36.9 C 74 16 165/71 H 94 PG Care Time/CCT Total # of Minutes Spent Total Time Spent with Patient: Total time spent is greater than 50% in coordination of care (as documented) at patient's floor/unit and/or counseling patient: Coding Level of Care Code 09194 Subseq Obs Care Lvl 2 Diagnoses Primary osteoarthritis of right knee M17.11 Atrial fibrillation I48.91 Hypertension I10 Hyperlipidemia E78.5 COPD (chronic obstructive pulmonary disease) J44.9 GERD (gastroesophageal reflux disease) K21.9 Depression F32.9 Anxiety F41.9 Memory problem R41.3 Postoperative anemia D64.9 Nausea and vomiting R11.2
[2021-10-19] MEDS: POLYETHYLENE (MIRALAX) 17 GM PACK PO SCH (21:46)
[2021-10-19] MEDS: LATANOPROST 0.005% OP SOLN 2.5 ML BTL OP SCH (21:47)
[2021-10-19] MEDS: CYANOCOBALAMIN (B-12) 500 MCG TABLET PO SCH (21:48)
[2021-10-19] MEDS: ASCORBIC ACID 500 MG TAB PO SCH (21:48)
[2021-10-19] MEDS: SENNA 8.6 MG TAB PO SCH (21:49)
[2021-10-19] MEDS: DONEPEZIL HCL 10 MG TAB PO SCH (21:49)
[2021-10-19] MEDS: ZOLPIDEM TARTRATE 5 MG TAB PO SCH (22:39)
[2021-10-20] MEDS: ACETAMINOPHEN 500 MG TAB PO SCH ×3 (05:10→21:08)
[2021-10-20] MEDS: oxyCODONE HCL IR 5 MG TAB (IMMEDIATE RELEASE) PO PRN ×2 (06:18→10:21)
[2021-10-20 06:45] LABS: Hematocrit (blood only) 28.6 % (37-47); Hemoglobin 8.8 g/dL (12.0-16.0); Mean Corpuscular Hemoglobin 28.9 pg (25-34); Mean Corpuscular Hgb Conc 30.8 g/dL (32-36); Mean Corpuscular Volume 93.8 fL (80-100); Mean Platelet Volume 10.8 fL (7.4-10.4); Platelet Count 242 K/uL (130-400); RDW Coefficient of Variation 15.9 % (11.5-14.5); RDW Standard Deviation 54.8 fL (36.4-46.3); Red Blood Count 3.05 M/uL (4.2-5.4); White Blood Count 8.98 K/uL (4.8-10.8)
[2021-10-20 07:09] LABS: BUN Creatinine Ratio 26.3 (10-20); Calcium 8.6 mg/dl (8.5-10.1); Est GFR (African American) 106.6 ml/min; Potassium 3.7 mmol/L (3.5-5.1)
[2021-10-20] MEDS: DOCUSATE SODIUM 100 MG CAP PO SCH ×2 (08:26→19:55)
[2021-10-20] MEDS: PANTOprazole 40 MG TAB PO SCH (08:27)
[2021-10-20] MEDS: VENLAFAXINE HCL XR 75 MG CAPXR PO SCH (08:27)
[2021-10-20] MEDS: MULTIVITAMIN TAB PO SCH (08:27)
[2021-10-20] MEDS: METOPROLOL SUCC 50MG EXT REL TAB PO SCH (08:28)
[2021-10-20] MEDS: buPROPion SR 100 MG TABCR PO SCH (08:29)
[2021-10-20] MEDS: lisinopril 5 MG TAB PO SCH (08:29)
[2021-10-20] MEDS: CALCIUM 600MG + VIT D 400 IU TAB PO SCH (08:29)
[2021-10-20] MEDS: ATORVASTATIN 20 MG TAB PO SCH (08:30)
--- NOTE | 2021-10-20 08:52 | Orthopedic Progress Note ---
Date of Service October 20, 2021 Assessment & Plan (1) Primary osteoarthritis of right knee: Plan: POD 2 s/p Right TKA PT/OT protocols. WBAT. DVT prophylaxis - Rivaroxaban, SCD's, ANGIE's Pain management as written. HTN - as per Hospitalist service Awaiting chest x-ray results for evaluation of the patient's O2 saturations. The hospital service will be evaluating the patient. If she makes significant improvements today, she may be able to be discharged home. Otherwise, she may be discharged home tomorrow. DC planning - Plan for services when dc'd. Admission and Anticipated Discharge Date Admission Date: October 18, 2021 Subjective States the pain in the knee has been controlled. She has been ambulating in her room and last evening she was able to ambulate in the hallways. No significant knee complaints today. Improved nausea today. The patient's RN was in the room during the exam. She stated that the patient's O2 saturations decreased to the mid 80s last evening and again this morning. She is placed on oxygen through nasal cannula. They have tried to wean her from the oxygen however her O2 sats continued to drop into the mid 80s. The hospitalist has ordered a chest x-ray. Physical Exam Constitutional: WD/WN, vitals as above no acute distress Musculoskeletal: Knee: + surgical incision (Right knee: Well approximated incision with Dermabond Prineo in place.); no skin erythema, no ecchymosis and no surgical drain present (Hemovac has previously been removed.) Skin: no rashes, warm and dry Trauma: no evidence of skin trauma Neurologic: normal touch/pain/proprioception Psychiatric: A+Ox3, euthymic affect Speech: normal rate/rhythm/volume of speech Results & Data ([facility]) Vital Signs (Past 12 Hours) Vital Signs Temp Pulse Pulse Resp BP Pulse Ox 10/20/21 08:25 73 170/70 H 10/20/21 07:08 36.9 C 70 16 177/70 H 99 10/20/21 06:23 74 151/74 H 99 10/20/21 04:39 63 133/56 L 93 10/19/21 22:14 36.9 C 63 16 177/67 H 92 10/19/21 21:42 37.2 C 72 16 179/72 H 92 Laboratory Results Laboratory Tests 10/20/21 10/20/21 05:56 05:56 Hgb 8.8 L Hct 28.6 L Creatinine 0.57 L
--- NOTE | 2021-10-20 08:58 | XRay Report ---
XR chest 1V portable CLINICAL HISTORY: hypoxia. COMPARISON STUDY: 03/02/2021 TECHNIQUE: 1 view of the chest FINDINGS: Single frontal view of the chest demonstrates the cardiomediastinal silhouette to be within normal li mits. There is a decreased inspiratory effort with elevation of the hemidiaphragms and crowding of th e bronchovascular markings at the lung bases and centrally. There is suspicion of mild central vascul ar congestion. There is no peripheral interstitial edema. There is minimal blunting left costophrenic angle now seen suspicious for small left pleural effusion. No confluent alveolar opacities. There is no acute osseous pathology. IMPRESSION: 1. Compared to previous examination, there is a decreased inspiratory effort with suspicion of mild c entral vascular congestion and evidence for small left pleural effusion. ACT 112: Negative or not required by law. Electronically signed by: Frank Christopher M.D. 10/20/2021 8:56 AM
[2021-10-20] MEDS ORDERED: SODIUM CHLORIDE 0.9% 250 ML IV PRN (14:36)
[2021-10-20] MEDS ORDERED: IBUPROFEN 800 MG TAB PO STA (14:39)
[2021-10-20] MEDS ORDERED: IBUPROFEN 600 MG TAB PO PRN (14:41)
--- NOTE | 2021-10-20 14:42 | Hospitalist Progress Note ---
Date of Service October 20, 2021 Assessment & Plan (1) Primary osteoarthritis of right knee: Plan: -S/P right TKA. Without pain, has ROM, pulses and sensation intact, without pallor. -Defer management of IVF/pain/abx/bowel regimen to primary team. (2) Postoperative anemia: Plan: Transfuse 1 units packed RBCs due to significant fatigue as discussed with Dr Vee at bedside On looking back at her hip operation in 2011 it appears she required 1 unit of blood transfusion on that occasion too. Xarelto on hold today but can resume tomorrow as discussed with Dr Vee FOB -ve Recheck CBC tomorrow (3) Nausea and vomiting: Plan: Appears to have resolved. Ondansetron PRN. Would avoid metoclopramide. (4) Atrial fibrillation: Plan: -Watchmann procedure done in June 2021, no longer requires anticogulation from this perspective. -Continue metoprolol 50 mg daily. (5) Hypertension: Plan: -Continue metoprolol, continue lisinopril. Would hold off additional acute management for HTN in post operative period as likely elevated due to pain and surgery. (6) Hyperlipidemia: Plan: -Continue atorvastatin 20 mg daily. (7) COPD (chronic obstructive pulmonary disease): Plan: -Chronic, stable, patient not on any inhalers at home. (8) GERD (gastroesophageal reflux disease): Plan: -Continue protonix 40 mg daily. (9) Depression: Plan: -Continue venlafaxine 150 mg daily, wellbutrin 100mg daily. (10) Anxiety: Plan: -Prescribed Xanax TID PRN. (11) Memory problem: Plan: -Continue Aricept 10 gm po HS. Plan: Thank you for the consult. We will continue to see her while hospitalized. Admission and Anticipated Discharge Date Admission Date: October 18, 2021 Subjective Patient reports increasing fatigue with Hgb drop to 8.8 from 9.7 yesterday (pre- operative Hgb 11.0). No chest pain, shortness of breath or dizziness. Pain much worse in her knee today after the block has worn off and she is struggling to get around. Ibuprofen being started by orthopedics. No further nausea, vomiting from yesterday. Review of Systems Review of Systems: All systems reviewed & are unremarkable except as noted in Subjective Physical Exam Constitutional: WD/WN, vitals as above Eyes: + anicteric sclerae; normal pupil size Respiratory: normal respiratory effort, lungs clear to auscultation Cardiovascular: RRR, no murmur, no edema Vessels: posterior tibial pulses present (right) and dorsalis pedis pulses present (right) Gastrointestinal (Abdomen): normal bowel sounds, soft, nontender, no hepatosplenomegaly Skin: no rashes, warm and dry no pallor Neurologic: moves all extremities and awake; not confused Motor/Sensory: no sensory deficit (right foot) Psychiatric: A+Ox3, euthymic affect Results & Data Results & Data ([facility]) Vital Signs (Past 12 Hours) Vital Signs Temp Pulse Pulse Resp BP Pulse Ox 10/20/21 10:10 65 146/66 H 10/20/21 08:25 73 170/70 H 10/20/21 07:08 36.9 C 70 16 177/70 H 99 10/20/21 06:23 74 151/74 H 99 10/20/21 04:39 63 133/56 L 93 PG Care Time/CCT Total # of Minutes Spent Total Time Spent with Patient: Total time spent is greater than 50% in coordination of care (as documented) at patient's floor/unit and/or counseling patient: Coding Level of Care Code 37768 Subseq Hosp Care Lvl 2 Diagnoses Primary osteoarthritis of right knee M17.11 Postoperative anemia D64.9 Nausea and vomiting R11.2 Atrial fibrillation I48.91 Hypertension I10 Hyperlipidemia E78.5 COPD (chronic obstructive pulmonary disease) J44.9 GERD (gastroesophageal reflux disease) K21.9 Depression F32.9 Anxiety F41.9 Memory problem R41.3
[2021-10-20] MEDS: LATANOPROST 0.005% OP SOLN 2.5 ML BTL OP SCH (19:54)
[2021-10-20] MEDS: SENNA 8.6 MG TAB PO SCH (19:54)
[2021-10-20] MEDS: ASCORBIC ACID 500 MG TAB PO SCH (19:54)
[2021-10-20] MEDS: DONEPEZIL HCL 10 MG TAB PO SCH (19:54)
[2021-10-20] MEDS: CYANOCOBALAMIN (B-12) 500 MCG TABLET PO SCH (19:55)
[2021-10-20] MEDS: POLYETHYLENE (MIRALAX) 17 GM PACK PO SCH (19:55)
[2021-10-20] MEDS: ZOLPIDEM TARTRATE 5 MG TAB PO SCH (22:20)
[2021-10-21] MEDS: ACETAMINOPHEN 500 MG TAB PO SCH (06:09)
[2021-10-21 07:50] LABS: Hematocrit (blood only) 32.9 % (37-47); Hemoglobin 10.3 g/dL (12.0-16.0); Mean Corpuscular Hemoglobin 29.1 pg (25-34); Mean Corpuscular Hgb Conc 31.3 g/dL (32-36); Mean Corpuscular Volume 92.9 fL (80-100); Mean Platelet Volume 10.7 fL (7.4-10.4); Platelet Count 231 K/uL (130-400); RDW Coefficient of Variation 16.4 % (11.5-14.5); RDW Standard Deviation 56.5 fL (36.4-46.3); Red Blood Count 3.54 M/uL (4.2-5.4); White Blood Count 7.68 K/uL (4.8-10.8)
[2021-10-21] MEDS: CALCIUM 600MG + VIT D 400 IU TAB PO SCH (08:10)
[2021-10-21] MEDS: METOPROLOL SUCC 50MG EXT REL TAB PO SCH (08:10)
[2021-10-21] MEDS: PANTOprazole 40 MG TAB PO SCH (08:11)
[2021-10-21] MEDS: ATORVASTATIN 20 MG TAB PO SCH (08:11)
[2021-10-21] MEDS: buPROPion SR 100 MG TABCR PO SCH (08:11)
[2021-10-21] MEDS: MULTIVITAMIN TAB PO SCH (08:12)
[2021-10-21] MEDS: DOCUSATE SODIUM 100 MG CAP PO SCH (08:12)
[2021-10-21] MEDS: RIVAROXABAN 10 MG TABLET PO SCH (08:12)
[2021-10-21] MEDS: VENLAFAXINE HCL XR 75 MG CAPXR PO SCH (08:13)
[2021-10-21 08:19] LABS: BUN Creatinine Ratio 26.4 (10-20); Calcium 8.8 mg/dl (8.5-10.1); Creatinine Clr Calc Pharmacy 90.3 ml/min; Est GFR (African American) 109.2 ml/min; Est GFR (Non-African American) 94.2 ml/min; Potassium 3.8 mmol/L (3.5-5.1)
[2021-10-21] MEDS ORDERED: lisinopril 10 MG TAB PO SCH (09:00)
--- NOTE | 2021-10-21 12:11 | Hospitalist Progress Note ---
Date of Service October 21, 2021 Assessment & Plan (1) Primary osteoarthritis of right knee: Plan: -S/P right TKA. Without pain, has ROM, pulses and sensation intact, without pallor. -Defer management of IVF/pain/abx/bowel regimen to primary team. (2) Postoperative anemia: Plan: On looking back at her hip operation in 2011 it appears she required 1 unit of blood transfusion on that occasion too. s/p 1 unit packed RBCs. Hgb 8.8 -> 10.3 (3) Nausea and vomiting: Plan: Appears to have resolved. Ondansetron PRN. Would avoid metoclopramide. (4) Atrial fibrillation: Plan: -Watchmann procedure done in June 2021, no longer requires anticogulation from this perspective. -Continue metoprolol 50 mg daily. (5) Hypertension: Plan: -Continue metoprolol, continue lisinopril -> recommend increasing to 10mg PO on discharge given persistently elevated HTN and no prior episodes or hypotension per patient. (6) Hyperlipidemia: Plan: -Continue atorvastatin 20 mg daily. (7) COPD (chronic obstructive pulmonary disease): Plan: -Chronic, stable, patient not on any inhalers at home. (8) GERD (gastroesophageal reflux disease): Plan: -Continue protonix 40 mg daily. (9) Depression: Plan: -Continue venlafaxine 150 mg daily, wellbutrin 100mg daily. (10) Anxiety: Plan: -Prescribed Xanax TID PRN. (11) Memory problem: Plan: -Continue Aricept 10 gm po HS. Plan: Thank you for the consult. Patient appears to be doing medically well. Will defer to orthopedics regarding discharge but does not need to stay as inpatient from medical stand point. Medicine team will sign off at this time. Please contact the communications associate provider via [place] if you wish us to see again. Admission and Anticipated Discharge Date Admission Date: October 18, 2021 Subjective Patient reports marked improvement in pain with ibuprofen added by orthopedics yesterday. Musch less fatigue in additional after blood transfusion. Patient seen while walking around her room using a walker. Feels she is ready for discharge today. Color in her face and mucus membranes also appears improved. Review of Systems Review of Systems: All systems reviewed & are unremarkable except as noted in Subjective Physical Exam Constitutional: WD/WN, vitals as above Eyes: + anicteric sclerae; normal pupil size Respiratory: normal respiratory effort, lungs clear to auscultation Cardiovascular: RRR, no murmur, no edema Vessels: posterior tibial pulses present (right) and dorsalis pedis pulses present (right) Skin: no rashes, warm and dry no pallor Neurologic: moves all extremities and awake; not confused Psychiatric: A+Ox3, euthymic affect Results & Data Results & Data ([facility]) Vital Signs (Past 12 Hours) Vital Signs Temp Pulse Resp BP Pulse Ox 10/21/21 09:30 72 165/65 H 10/21/21 08:09 66 181/66 H 10/21/21 07:07 36.9 C 68 14 175/70 H 91 10/21/21 06:18 93 PG Care Time/CCT Total # of Minutes Spent Total Time Spent with Patient: Total time spent is greater than 50% in coordination of care (as documented) at patient's floor/unit and/or counseling patient: Coding Level of Care Code 91570 Subseq Hosp Care Lvl 2 Diagnoses Primary osteoarthritis of right knee M17.11 Postoperative anemia D64.9 Nausea and vomiting R11.2 Atrial fibrillation I48.91 Hypertension I10 Hyperlipidemia E78.5 COPD (chronic obstructive pulmonary disease) J44.9 GERD (gastroesophageal reflux disease) K21.9 Depression F32.9 Anxiety F41.9 Memory problem R41.3
--- NOTE | 2021-10-21 13:28 | Orthopedic Progress Note ---
Date of Service October 21, 2021 Assessment & Plan (1) Primary osteoarthritis of right knee: Plan: POD 3 s/p Right TKA PT/OT protocols. WBAT. DVT prophylaxis - Rivaroxaban, SCD's, ANGIE's Pain management as written. HTN - as per Hospitalist service. 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 DC planning - Plan for services today. Admission and Anticipated Discharge Date Admission Date: October 18, 2021 Subjective Feeling much better today after our transfusion of 1 unit of packed red blood cells yesterday. Pain is controlled in the right knee. Physical Exam Constitutional: WD/WN, vitals as above no acute distress Musculoskeletal: Knee: + surgical incision (Right knee: Well approximated incision with Dermabond Prineo in place.); no skin erythema, no ecchymosis and no surgical drain present (Hemovac has previously been removed.) Skin: no rashes, warm and dry Trauma: no evidence of skin trauma Neurologic: normal touch/pain/proprioception Psychiatric: A+Ox3, euthymic affect Speech: normal rate/rhythm/volume of speech Results & Data ([facility]) Vital Signs (Past 12 Hours) Vital Signs Temp Pulse Resp BP Pulse Ox 10/21/21 09:30 72 165/65 H 10/21/21 08:09 66 181/66 H 10/21/21 07:07 36.9 C 68 14 175/70 H 91 10/21/21 06:18 93
--- NOTE | 2021-10-21 20:17 | Discharge Summary ---
Date of Service October 21, 2021 Admission HPI Per Admitting Provider 75-year-old female with past medical history significant for COPD, hypertension, high cholesterol, anxiety, GERD, history of DVT with a family history of factor V Leiden, A. fib who presents with ongoing right knee pain. Pain is interfering with her daily activities. She has failed conservative measures including injections, NSAIDs, bracing. She would like to proceed with knee replacement. Patient denies headaches, sweats, fevers, chills, double vision, blurred vision, cough, sore throat, dysphagia, chest pain, sob, wheezing, n/v/d/c, numbness, tingling, fatigue, urinary symptoms, mood disorders. ROS positive for right knee pain and stiffness. Admission Exam Per Admitting Provider Constitutional: well developed and well nourished; no acute distress Eyes: PERRL, conjunctivae normal, anicteric sclerae ENMT: external ear and nose normal, oropharynx normal Neck: trachea midline, no thyromegaly Respiratory: normal respiratory effort, lungs clear to auscultation Cardiovascular: RRR, no murmur, no edema Musculoskeletal: Right knee: Valgus alignment. Mild effusion. Diffuse tenderness. Positive Neil's. Stable valgus and varus stress. Painful range of motion 0 to 125 degrees. Skin: no rashes, warm and dry Neurologic: patellar DTR's 2+ bilat, sensation intact Psychiatric: A+Ox3, euthymic affect Principal Diagnosis Right knee osteoarthritis Discharge Exam Constitutional: WD/WN, vitals as above no acute distress Musculoskeletal: Knee: + surgical incision (Right knee: Well approximated incision with Dermabond Prineo in place.); no skin erythema, no ecchymosis and no surgical drain present (Hemovac has previously been removed.) Skin: no rashes, warm and dry Trauma: no evidence of skin trauma Neurologic: normal touch/pain/proprioception Psychiatric: A+Ox3, euthymic affect Speech: normal rate/rhythm/volume of speech Discharge Data Allergies Allergy/AdvReac Type Severity Reaction Status Date / Time Sulfa (Sulfonamide Allergy Unknown Itchiness, Verified 10/18/21 05:35 Antibiotics) hives, swelling levofloxacin AdvReac Unknown Arm Verified 10/18/21 05:36 heaviness/pain Consultations 10/16/21 13:58 Consult Hospitalist Routine Procedures Performed Operation Date: 10/18/21 07:15 Actual Procedures p Right Total Knee Arthroplasty(Right) - Ean Forbes MD Ordered Studies 10/18/21 05:00 US - OR guided needle placemen Stat Hospital Course (1) Primary osteoarthritis of right knee: Patient presented for same day admission following right TKA on 10/18/21. She tolerated procedure well. Post operatively patient did have some issue with nausea as well as shortness of breath which did resolve by discharge. She did receive 1 unit of PRBC while inpatient. Post-operatively, her activity was progressed and well tolerated. They participated in PT with ambulation distance of 120 feet. ROM of operative knee reached 97 degrees. Labs remained stable- lowest hemoglobin recorded:8.8 which improved to 10.3 on POD#3. Dr. Yusuf Victor of medical service was consulted for medical management during admission. Pain controlled on oral medications. Please refer to daily progress notes and PT notes for complete details. After exam on 10/21/21, patient was felt to be stable for discharge home with home health PT. Patient will f/u in the office in about 2 weeks for further evaluation including x-rays and incision check, sooner if having any issues or concerns. POD 3 s/p Right TKA PT/OT protocols. WBAT. DVT prophylaxis - Rivaroxaban, SCD's, ANGIE's Pain management as written. HTN - as per Hospitalist service. Recommend follow-up with her primary care or complex manager to discuss hypertension medications. DC planning - Plan for services today. Lab Results 10/18/21 10/18/21 10/18/21 Range/Units 05:29 05:47 09:46 WBC (4.8-10.8) K/uL RBC (4.2-5.4) M/uL Hgb (12.0-16.0) g/dL Hct (37-47) % MCV (80-100) fL MCH (25-34) pg MCHC (32-36) g/dL RDW Std Deviation (36.4-46.3) fL RDW Coeff of Hima (11.5-14.5) % Plt Count (130-400) K/uL MPV (7.4-10.4) fL Sodium (136-145) mmol/L Potassium (3.5-5.1) mmol/L Chloride (98-107) mmol/L Carbon Dioxide (21-32) mmol/L Anion Gap (3-11) BUN (6-23) mg/dl Creatinine (0.6-1.2) mg/dl Est Cr Clr Drug Dosing ml/min Est GFR ( Amer) ml/min Est GFR (Non-Af Amer) ml/min BUN/Creatinine Ratio (10-20) Glucose (70-99(Fasting)) mg/dl POC Glucose 129 H (70-99) mg/dl Calcium (8.5-10.1) mg/dl Stool Occult Bld Scrn (Negative) SARS-CoV-2, RNA, NAAT NEGATIVE (NEGATIVE) Blood Type A Negative Antibody Screen NEGATIVE Crossmatch See Detail 10/18/21 10/19/21 10/19/21 Range/Units 10:21 07:48 07:48 WBC 11.61 H (4.8-10.8) K/uL RBC 3.27 L (4.2-5.4) M/uL Hgb 11.0 L 9.7 L (12.0-16.0) g/dL Hct 34.2 L 29.4 L (37-47) % MCV 89.9 (80-100) fL MCH 29.7 (25-34) pg MCHC 33.0 (32-36) g/dL RDW Std Deviation 50.2 H (36.4-46.3) fL RDW Coeff of Hima 15.1 H (11.5-14.5) % Plt Count 245 (130-400) K/uL MPV 9.8 (7.4-10.4) fL Sodium 140 (136-145) mmol/L Potassium 3.5 (3.5-5.1) mmol/L Chloride 108 H (98-107) mmol/L Carbon Dioxide 27 (21-32) mmol/L Anion Gap 5 (3-11) BUN 18 (6-23) mg/dl Creatinine 0.66 (0.6-1.2) mg/dl Est Cr Clr Drug Dosing 72.5 ml/min Est GFR ( Amer) 101.6 ml/min Est GFR (Non-Af Amer) 87.6 ml/min BUN/Creatinine Ratio 27.3 H (10-20) Glucose 116 H (70-99(Fasting)) mg/dl POC Glucose (70-99) mg/dl Calcium 8.4 L (8.5-10.1) mg/dl Stool Occult Bld Scrn (Negative) SARS-CoV-2, RNA, NAAT (NEGATIVE) Blood Type Antibody Screen Crossmatch 10/20/21 10/20/21 10/20/21 Range/Units 05:56 05:56 09:50 WBC 8.98 (4.8-10.8) K/uL RBC 3.05 L (4.2-5.4) M/uL Hgb 8.8 L (12.0-16.0) g/dL Hct 28.6 L (37-47) % MCV 93.8 (80-100) fL MCH 28.9 (25-34) pg MCHC 30.8 L (32-36) g/dL RDW Std Deviation 54.8 H (36.4-46.3) fL RDW Coeff of Hima 15.9 H (11.5-14.5) % Plt Count 242 (130-400) K/uL MPV 10.8 H (7.4-10.4) fL Sodium 141 (136-145) mmol/L Potassium 3.7 (3.5-5.1) mmol/L Chloride 105 (98-107) mmol/L Carbon Dioxide 31 (21-32) mmol/L Anion Gap 5 (3-11) BUN 15 (6-23) mg/dl Creatinine 0.57 L (0.6-1.2) mg/dl Est Cr Clr Drug Dosing 84.0 ml/min Est GFR ( Amer) 106.6 ml/min Est GFR (Non-Af Amer) 92.0 ml/min BUN/Creatinine Ratio 26.3 H (10-20) Glucose 102 H (70-99(Fasting)) mg/dl POC Glucose (70-99) mg/dl Calcium 8.6 (8.5-10.1) mg/dl Stool Occult Bld Scrn Negative (Negative) SARS-CoV-2, RNA, NAAT (NEGATIVE) Blood Type Antibody Screen Crossmatch 10/21/21 10/21/21 Range/Units 07:01 07:01 WBC 7.68 (4.8-10.8) K/uL RBC 3.54 L (4.2-5.4) M/uL Hgb 10.3 L (12.0-16.0) g/dL Hct 32.9 L (37-47) % MCV 92.9 (80-100) fL MCH 29.1 (25-34) pg MCHC 31.3 L (32-36) g/dL RDW Std Deviation 56.5 H (36.4-46.3) fL RDW Coeff of Hima 16.4 H (11.5-14.5) % Plt Count 231 (130-400) K/uL MPV 10.7 H (7.4-10.4) fL Sodium 142 (136-145) mmol/L Potassium 3.8 (3.5-5.1) mmol/L Chloride 105 (98-107) mmol/L Carbon Dioxide 34 H (21-32) mmol/L Anion Gap 3 (3-11) BUN 14 (6-23) mg/dl Creatinine 0.53 L (0.6-1.2) mg/dl Est Cr Clr Drug Dosing 90.3 ml/min Est GFR ( Amer) 109.2 ml/min Est GFR (Non-Af Amer) 94.2 ml/min BUN/Creatinine Ratio 26.4 H (10-20) Glucose 103 H (70-99(Fasting)) mg/dl POC Glucose (70-99) mg/dl Calcium 8.8 (8.5-10.1) mg/dl Stool Occult Bld Scrn (Negative) SARS-CoV-2, RNA, NAAT (NEGATIVE) Blood Type Antibody Screen Crossmatch Total Time Total Time Spent Total Time Spent (In Minutes): 20 Discharge Plan Discharge Items Patient Disposition: Home - Home Health Services Reason For Visit: Right Knee Osteoarthritis Discharge Diagnosis: Right Knee Osteoarthritis Activity: Per Instructions section Weightbearing: Right weightbearing Weightbearing Comment: as tolerated with walker Non-emergency contact: Surgeon Call non-emergency contact if: your pain is not controlled, your temperature is above 101.5, your wound has increased redness and your wound has increased drainage Follow-up/Referrals: Ean Forbes MD [Surgeon] - (follow up in 14 days from the day of your surgery for your first wound check.) Simba Wallace, [Primary Care Provider] - Diet: Regular Addtl Attending Provider Instructions: ACTIVITY RECOMMENDATIONS: SELF CARE INSTRUCTIONS AFTER TOTAL KNEE REPLACEMENT A. You may need to continue a physical therapy program after discharge from the hospital. There are several options available to you. Your doctor will assist you in selecting the best one for you. 1. An out-patient facility 2 to 3 times a week for therapy or home therapy. 2. Continue working on all exercises taught to you in the hospital. Your goals should be to increase bending of your knee to 90 degrees and beyond and to fully straighten your knee. B. You may progress at your own pace from walking with a walker or crutches to a cane; then to no assistive devices. C. Make walking a part of your daily routine. Be up as much as comfortable with rest periods throughout the day. Rest with leg elevation is very important. Use the ice wrap frequently for the first 3-4 weeks. D. There are no restrictions on activities. You may ride in a car, shop, participate in post office manager and all social activities. E. Wear the long elastic stockings (ANGIE hose) 20 hours a day for 2 weeks after surgery. They can be removed several times a day for laundering and for a bath. F. You may shower, no tub baths until cleared by your doctor. SPECIAL CARE INSTRUCTIONS: VERY IMPORTANT TO READ AND REVIEW A. There are a few signs you need to watch for after you are home. Call [facility] if you notice any of the followin. Increased severe knee pain. Some pain is expected especially when you exercise. 2. Increased swelling in your leg or knee; pain or swelling of the calf muscle in either lower leg. 3. Any fluid drainage from the incision. 4. Shortness of breath or chest pain. B. Please call [facility] at if you have any concerns or questions about your operation or recovery. The doctor or his nurse will return your call promptly. C. You must take antibiotics before dental work, bladder, bowel or other surgery. Your doctor will provide you with a permanent care to carry describing this precaution. IMPORTANT: * REMEMBER TO TAKE ASPIRIN, 81 MG, TWICE DAILY FOR 4 WEEKS UNLESS OTHERWISE DIRECTED. THIS IS YOUR BLOOD THINNER. * HIGH RISK PATIENTS MAY BE PRESCRIBED A STRONGER BLOOD THINNER. THIS WILL BE PROVIDED AT DISCHARGE. * CALL IF INCREASED PAIN, REDNESS, DRAINAGE OR FEVER GREATER THAT 101. * WEAR ANGIE HOSE 20 HOURS PER DAY FOR 2 WEEKS. This is a mesh tape dressing that is covered with glue. It should remain in place until the incision is properly healed, usually 10-14 days. This dressing is designed to naturally slough off. You may trim the excess mesh tape as it peels off. Incision may be briefly wet in a shower. Dry immediately by blotting with a clean, dry towel. Do not bath or swim until instructed by your doctor. Do not scratch, rub, or pick at the dressing. Do not apply any topical ointments or lotions until dressing is completely removed and/or instructed by your doctor. There may be a small piece of suture material at one end of your incision. Do not pull or trim this. If it is bothersome or catching on clothing, you may cover it with a band-aid. IF INCISION IS LEAKING THROUGH DRESSING, CALL THE OFFICE . FOLLOW UP VISIT: If appointment is not already scheduled: Please call [facility] to make a follow-up appointment for 2 weeks after your surgery at . Pending Studies at Discharge: No Stand-Alone Forms: [facility] WUT, Smoking Cessation Medications and DC Order Prescriptions: New acetaminophen [Tylenol Extra Strength] 500 mg Tablet 1,000 mg PO Q8 14 Days Qty: 84 RF: 0 Xarelto 10 mg Tablet 10 mg PO DAILY 30 Days Qty: 30 RF: 0 polyethylene glycol 3350 [Miralax] 17 gram powder in packet 17 g PO DAILY PRN (Reason: constipation) Qty: 5 RF: 0 oxycodone 5 mg Tablet 5 mg PO Q4H MDD 6 PRN (Reason: pain) Qty: 30 RF: 0 Continued atorvastatin 20 mg Tablet 20 mg PO QAM RF: 0 calcium carbonate [Calcium 600] 600 mg calcium (1,500 mg) Tablet 600 mg PO QAM RF: 0 latanoprost [Xalatan] 0.005 % Drops 1 drp OPHTHALMIC (EYE) QPM RF: 0 lisinopril 10 mg Tablet 5 mg PO QAM RF: 0 bupropion HCl [Wellbutrin SR] 100 mg Tablet Sustained-Release 12 Hr 100 mg PO QAM RF: 0 metoprolol succinate [Toprol XL] 25 mg Tablet Extended Release 24 Hr 50 mg PO QAM RF: 0 multivitamin Tablet 1 tab PO QAM RF: 0 venlafaxine 75 mg Tablet 150 mg PO QAM RF: 0 polyethylene glycol 3350 [Miralax] 17 gram/dose Powder 17 g PO HS RF: 0 zolpidem 10 mg Tablet 12.5 mg PO HS RF: 0 pantoprazole 40 mg Tablet,Delayed Release (Dr/Ec) 40 mg PO QAM RF: 0 aspirin 81 mg Tablet,Delayed Release (Dr/Ec) 81 mg PO DAILY RF: 0 donepezil [Aricept] 10 mg Tablet 10 mg PO HS RF: 0 ascorbic acid (vitamin C) [Vitamin C] 1,000 mg Tablet 1 g PO HS RF: 0 cyanocobalamin (vitamin B-12) [Vitamin B-12] 500 mcg Tablet 500 mcg PO HS RF: 0 Discontinued acetaminophen 500 mg tablet 1,000 mg PO UD PRN (Reason: Headache) RF: 0 Discharge Orders: Discharge Order (Routine); Ordered 10/21/21 Ordered By: Porter Calvert/Other Patient Handouts: Surg Dc, Total Knee Replacement Admission Data Admit Date/Time: 10/18/21 09:42 Attending Provider: Ean Forbes Admit Provider: Ean Forbes Primary Care Provider: Simba Wallace Other Providers: Yusuf Victor ; Yusuf Barillas ; [facility],Home [facility] Other Interventions: Discharge Summary Assessment (RN) Last Done: 10/21/21 14:16
== END 2021-10-21 14:50 | disposition home or self-care (01) ==
LOC: ASU 05:04 → 3N 05:04